=== PATIENT | male | born 1955 | race Caucasian/White ===

== ENCOUNTER → 2021-02-15 10:31 | Outpatient (BNVA) | payer BC, SELFPAY | PROVIDERS: Visit Provider Nurse Practitioner Family | DX: M16.11 Unilateral primary osteoarthritis, right hip (principal); M25.551 Pain in right hip | CPT/HCPCS: 73502 ==

== ENCOUNTER → 2022-03-29 15:14 | Outpatient (BNVA) | payer BC, SELFPAY | PROVIDERS: Visit Provider Family Medicine | DX: M17.12 Unilateral primary osteoarthritis, left knee (principal); M17.11 Unilateral primary osteoarthritis, right knee; I10 Essential (primary) hypertension; Z13.220 Encounter for screening for lipoid disorders; Z13.6 Encounter for screening for cardiovascular disorders | CPT/HCPCS: 73562; 85025 ==

== ENCOUNTER → 2022-04-03 09:22 | Outpatient (BNVA) | payer BC, SELFPAY | PROVIDERS: Visit Provider Family Medicine | DX: J44.9 Chronic obstructive pulmonary disease, unspecified (principal); I10 Essential (primary) hypertension; Z13.220 Encounter for screening for lipoid disorders; Z13.6 Encounter for screening for cardiovascular disorders; Z11.59 Encounter for screening for other viral diseases | CPT/HCPCS: 80053; 80061; 85025; 86803 ==

== ENCOUNTER → 2022-04-04 14:14 | Outpatient (BNVA) | payer BC, SELFPAY | PROVIDERS: Visit Provider Student in an Organized Health Care Education/Training Program | DX: M17.0 Bilateral primary osteoarthritis of knee (principal) | CPT/HCPCS: 73560; 73565 ==

== ENCOUNTER 2022-06-08 06:50 | Outpatient (CLI) | payer BC, SELFPAY ==
--- NOTE | 2022-06-08 07:15 | USCV_ITS ---
Pedro Zelaya Age: 67 Gender: M : 1955 Exam Date: 06/08/2022 07:08 Ordering Phys: Christiane Villegas MD ([email or web address]) Technologist: CHEMO Exam Location: [facility] [place] Indication: SHORTNESS OF BREATH, BRADYCARDIA BP: 154 / 81 HR: 38 Rhythm: Sinus Technical Quality: Suboptimal MEASUREMENTS (Male / Female) Normal Values 2D ECHO LVOT Diameter 2.0 cm LV Ejection Fraction MOD 2C 62.9 % LV Ejection Fraction 2C AL 62.9 % LA Diameter 2.6 cm LA Width 3.3 cm LA Height 4.6 cm RA Width 3.7 cm RA Height 4.7 cm Aorta at Sinotubular Diameter 2.0 cm IVC Diameter 1.6 cm DOPPLER AV Peak Velocity 142.0 cm/s LVOT Peak Velocity 131.0 cm/s AV Area Cont Eq vti 2.5 cm squared AV Area Cont Eq pk 2.9 cm squared MV Peak Velocity 93.0 cm/s MV Area PHT 4.9 cm squared Mitral E to A Ratio 1.0 MV E' Velocity 45.0 cm/s Mitral E to MV E' Ratio 5.3 Mitral E to LV E' Lateral Ratio 5.1 Mitral E to LV E' Septal Ratio 5.5 TR Peak Velocity 264.3 cm/s TR Peak Gradient 27.9 mmHg TR Mean Velocity 212.2 cm/s TR Mean Gradient 19.4 mmHg TR Velocity Time Integral 99.0 cm TV Peak E Velocity 63.0 cm/s Right Atrial Pressure 3.0 mmHg Pulmonary Artery Systolic Pressu 30.9 mmHg FINDINGS Left Ventricle Normal left ventricular size, systolic function and wall thickness, with no regional wall motion abnormalities. Left ventricular ejection fraction is estimated at 65 %. Normal diastolic function. Right Ventricle Normal right ventricular size and systolic function. Right ventricular systolic pressure 36 mmHg. Right Atrium Normal right atrial size. Left Atrium Normal left atrial size. Mitral Valve Structurally normal mitral valve. No mitral valve stenosis. Mild mitral valve regurgitation. Aortic Valve Aortic valve not well visualized. No aortic valve stenosis. No aortic valve regurgitation. Tricuspid Valve Structurally normal tricuspid valve. No tricuspid valve stenosis. Trace to mild tricuspid valve regurgitation. Pulmonic Valve Pulmonic valve not well visualized. Pericardium No pericardial effusion. Aorta Normal size aortic root and proximal ascending aorta. IVC Normal IVC dimension with >50% respiratory change of the inferior vena cava. CONCLUSIONS 1. Normal left ventricular size, systolic function and wall thickness, with no regional wall motion abnormalities. Left ventricular ejection fraction is estimated at 65 %. Normal diastolic function. 2. Pulmonary artery pressure estimated at 36 mm Hg. 3. Mild mitral valve regurgitation. 4. No prior similar studies to compare. Christiane Villegas MD (Electronically Signed) Final Date: 09 June 2022 15:21 S
== END 2022-06-08 06:51 | disposition home or self-care (01) ==
PROVIDERS: PCP Family Medicine; Visit Provider Internal Medicine Cardiovascular Disease
DX: R06.02 Shortness of breath (principal); R00.1 Bradycardia, unspecified; I34.0 Nonrheumatic mitral (valve) insufficiency
CPT/HCPCS: 93306

== ENCOUNTER 2022-06-26 10:24 | Outpatient (CLI) | payer BC, SELFPAY ==
--- NOTE | 2022-06-26 10:30 | CT_ITS ---
WS: [id number] CT RIGHT knee, noncontrast HISTORY: Pain in right knee TECHNIQUE: Protocol for ROXANA total knee replacement has been obtained. This includes axial imaging th rough the RIGHT hip, RIGHT knee and RIGHT ankle. DLP: 907.47 mGy.cm COMPARISON: Radiographs 04/04/2022 Pelvis: Mild narrowing of the SI joints bilaterally. No significant narrowing of the hip joints. RIGHT knee: Moderate narrowing of the medial compartment with bone hypertrophy along the joint lines. Mild lateral subluxation of patella. Small joint effusion. RIGHT ankle: Negative. CT/CT knee RT wo con* [id number] IMPRESSION: CT imaging provided for [facility] robotic total knee replacement.
== END 2022-06-26 10:25 | disposition home or self-care (01) ==
PROVIDERS: PCP Family Medicine; Visit Provider Student in an Organized Health Care Education/Training Program
DX: M17.11 Unilateral primary osteoarthritis, right knee (principal); M25.561 Pain in right knee; Z96.651 Presence of right artificial knee joint
CPT/HCPCS: 73700

== ENCOUNTER 2022-07-05 11:06 | Observation (INO) | payer BC, SELFPAY ==
[2022-06-27 12:56] VITALS: BMI 30.7
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
[2022-07-05] VITALS (19 sets, daily range): BP systolic 101–136; BP diastolic 50–84; PULSE 54–81; RESP 17–18; TEMP 36.1–36.6; O2SAT 93–100; BMI 30.7
[2022-07-05] MEDS: ketorolac 30 mg/mL INJ IVP (06:30)
[2022-07-05] MEDS: acetaminophen 1,000 MG/100 ML PIGGYBACK 400 MG IV ×3 (06:32→22:14)
--- NOTE | 2022-07-05 06:53 | W.PM.OPSUD ---
Surgery/Procedure H&P Update DATE OF PROCEDURE: July 05, 2022 DATE H&P PERFORMED: 06/08/22 CHANGES TO PREVIOUS DOCUMENTATION: None. No issues or new complaints at this time. Patient's states he is ready to proceed with right total knee arthroplasty. He understands risk benefits complication alternatives surgical and nonsurgical treatment options. Understanding his risk for surgery he agrees to proceed. Consent was obtained in the office. PREOP DIAGNOSIS: Right knee degenerative joint disease failed conservative treatment PRIMARY INDICATION FOR PROCEDURE: Right knee degenerative joint disease failed conservative treatment PLANNED PROCEDURE: Operation Date: 07/05/22 07:00 Proposed Procedures p Right knee total Rusty Arthroplasty 43244,M25.569(Right) - Pedro Zepeda DO
[2022-07-05 07:26] LABS: Add Urine Microscopic? YES; Bilirubin Urine Neg (Negative); Blood Urine Trace (Negative); Glucose Urine UA Norm (Normal); Ketones Urine 1+ (Negative); Leukocyte Esterase Urine Negative (Negative); Nitrate Urine Negative (Negative); Protein Urine Neg (Negative); Specific Gravity, Urine 1.025 (1.005-1.030); Urine Appearance Clear (CLEAR); Urine Color Straw (Yellow); Urobilinogen Urine Neg (Negative); pH Urine 5 (5-7)
[2022-07-05 07:33] LABS: Basophils % 0.5 %; Eosinophils # 0.2 10^3/uL (0.0-0.8); Eosinophils % 2.7 %; Hematocrit 49.4 % (42.0-52.0); Hemoglobin 15.7 g/dL (11.7-16.6); Lymphocytes # 1.6 10^3/uL (0.8-4.8); Mean Corpuscular HGB Conc 31.8 g/dL (30.0-36.0); Mean Corpuscular Volume 94.3 fl (80-94); Mean Platelet Volume 11.4 fL (7.4-10.4); Monocytes # 0.7 10^3/uL (0.2-0.9); Monocytes % 12.2 %; Neutrophils # 2.97 10^3/uL (1.8-7.7); Neutrophils % 54.4 %; Nucleated Red Blood Cells % 0 %; Platelet Count 230 10^3/cmm (130-400); Red Blood Count 5.24 10^6/uL (4.1-5.3); White Blood Count 5.5 10^3/uL (4.0-10.0)
[2022-07-05 07:39] LABS: Add Urine Culture? No; Mucus Urine 2+ /hpf; RBC Urine 0-4 /hpf (0-2); Squamous Epithelial Cell Urine 0-4 /hpf (0-5)
[2022-07-05 07:41] LABS: Anion Gap 15.7 (5-19); Blood Urea Nitrogen 17 mg/dL (8-23); Calcium 9.2 mg/dL (8.5-10.5); Carbon Dioxide 20 mmol/L (22-29); Chloride 107 mmol/L (98-107); Glomerular Filtration Rate 96.7 mL/min (90-130); Glucose 106 mg/dL (65-115); Osmolality Calculated 288 mOsm/kg (285-295); Potassium 4.7 mmol/L (3.5-5.1); Sodium 138 mmol/L (136-145)
[2022-07-05] MEDS: ceFAZolin 2,000 MG in sodium chloride 0.9% (plus) 50 ML 100 MG IV ×2 (07:47→16:10)
[2022-07-05] MEDS: tranexamic acid 1,000 mg/10mL SDV 1000 MG XX (08:45)
[2022-07-05] MEDS: tranexamic acid 1,000 mg/10mL SDV 1000 MG IV (08:45)
[2022-07-05] MEDS: ketorolac 30 mg/mL INJ XX (08:45)
[2022-07-05] MEDS: EPINEPHrine 1 mg/mL INJ XX (08:45)
--- NOTE | 2022-07-05 09:33 | P.ANESUD_ITS ---
Pre-Anesthetic Update Pre-Anesthetic Assessment: Date of Surgery/Procedure: 07/05/22 Preop Jacqui gnosis: Right knee degenerative joint disease failed conservative treatment Proposed Procedure: Operation Date: 07/05/22 07:00 Proposed Procedures p Right knee total Rusty Arthroplasty 18986,M25.569(Right) - Pedro Zepeda, DO Any changes to Pre-Anesthetic Assessment?: No Last Intake: Intake Last Liquid Date 07/04/22 Last Liquid Time 20:00 Last Solid Date 07/04/22 Last Solid Time 20:00 Labs Last 48hrs: Short CBC 07/05/22 Range/Units 06:27 WBC 5.5 (4.0-10.0) 10^3/ uL Hgb 15.7 (11.7-16.6) g/dL Hct 49.4 (42.0-52.0) % MCV 94.3 H (80-94) fl Plt Count 230 (130-400) 10^3/c mm Neut % (Auto) 54.4 % Neut # (Auto) 2.97 (1.8-7.7) 10^3/u L BMP 07/05/22 06:27 Sodium 138 Potassium 4.7 Chloride 107 Carbon Dioxide 20 L BUN 17 Creatinine 0.8 Glucose 106 Calcium 9.2 Urine 07/05/22 Range/Units 06:27 Urine Color Straw (Yellow) Urine Appearance Clear (CLEAR) Urine pH 5 (5-7) Ur Specific Gravit y 1.025 (1.005-1.030) Urine Protein Neg (Negative) Urine Glucose (UA) Norm (Normal) Urine Ketones 1+ H (Negative) Urine Nitrate Negative (Negative) Urine Bilirubin Neg (Negative) Ur Leukocyte Patricia ase Negative (Negative) Urine RBC 0-4 H (0-2) /hpf Urine WBC None (0-5) /hpf Blood Bank 07/05/22 06:27 Blood Type O Negative Rho(D) Type Negative Antibody Screen Negative Vitals: Temperature Source Temporal Artery S can 07/05/22 06:09 Pulse Rate 61 07/05/22 06:09 Respiratory Rate 18 07/05/22 06:09 Blood Pressure 134/84 07/05/22 06:09 Blood Pressure Anuja n 100 07/05/22 06:09 Pulse Oximetry 96 07/05/22 06:09 Oxygen Delivery Me thod 07/05/22 06:09 Exam: Pre-Anes Outpt Exam: alert, oriented x 3, clear to auscultation bilaterally and regular rate & rhythm Cardiac Studies: Echocardiogram 06/08/22 Holter Monitor 05/23/22 Anesthesia Procedures Nerve Block: Nerve Block 1: Main Anesthesia: spinal anesthesia block Time Out Performed: Yes Consent: requested by attending/covering physician, from patient, risks and benefits reviewed and patient agrees to proceed Nerve block location: adductor canal (right) Anesthesia monitors applied: pulse oximetry, EKG, BP cuff and oxygen Nerve block position: supine Anesthetic Used: ropivicaine 0.5% Amount of anesthesia used (mL): 20 Ultrasound used to: recognize landmarks Nerve Stimulator Used?: No Interscalene/Femoral BLK: 4 stimuplex 21 g needle used for position and inplane approach Injection: neg aspiration of heme Patient Tolerated Procedure: well Complications: none
--- NOTE | 2022-07-05 10:13 | P.OP_ITS ---
Brief Operative Note Date of procedure: 07/09/22 Pre-op diagnosis: Right knee degenerative joint disease, failed conservative t reatment Post-op diagnosis: same Procedure Done: Right total knee arthroplasty cemented?robotic assisted Rusty Surgeon: Pedro Zepeda Estimated blood loss (mL): 25 Complications: None Post-op Plan: Patient taken to PACU in stable condition recovering well postoperatively. Spinal anesthesia wearing off. Patient has Lopez in place. Plan will be for DC Lopez postop day 1. Dressing on in place clean dry and intact. Will be weightbearing as tolerated to the right lower extremity received postoperative x-rays showing stable prosthesis right total knee arthroplasty. Internal medicine on board for medical management. Pain control, DVT prophylaxis, appropriate perioperative antibiotics. Orthopedics will continue to monitor. We will follow-up with me in the office in 2 weeks. Condition: stable Disposition: floor Coding Level of Care Code Acute Code for Karsten Meraz
--- NOTE | 2022-07-05 10:13 | PM.PACU ---
PACU note Narrative: Patient taken to PACU in stable condition recovering well. Dressing on in place clean dry and intact. Distal pulses are palpable. Toes warm well perfused. Patient received spinal anesthesia beginning to wear off. He is able to wiggle his toes and plantarflex and dorsiflex his ankle. Still has some paresthesias to the right lower extremity. Pain controlled. Exam: awake Disposition: admitted
--- NOTE | 2022-07-05 10:14 | XR_ITS ---
WS: [id number] KNEE RIGHT TECHNIQUE: 2 views of the right knee CLINICAL INFORMATION: postop tka COMPARISON: None. FINDINGS: Normal anatomic alignment. Recent postoperative changes RIGHT TKA. Hardware appears in good position and well seated. Patellar resurfacing. Soft tissue edema. Subcutane ous emphysema in the anterior and suprapatellar soft tissues. XR/XR knee RT 1-2V [id number] IMPRESSION: Normal postoperative TKA Kellgren-Jt Classification: NA
--- NOTE | 2022-07-05 10:14 | PM.OP ---
Operative Report Date of procedure: July 05, 2022 Pre-op diagnosis: Preop Diagnosis Right knee degenerative joint disease failed conservative treatment Post-op diagnosis: Same Procedure done: Right total knee arthroplasty, cemented?robotic assisted Rusty Implants: Oneil triathlon size 5 femur CR cemented Oneil triathlon size 5 tibia universal baseplate cemented [place] triathlon asymmetric patella size 32 mm [place] triathlon polyethylene 10 mm Surgeon: Pedro Zepeda DO Estimated blood loss: 25 mL 66 minutes IV fluids: 1500 mL Urine output: 300 mL Complications: None Condition: stable Disposition: floor Brief History: Pedro is a pleasant 67-year-old gentleman with chronic right knee degenerative joint disease. He has had injections that have failed in the past. Most recently back in March. He is now 90 days since his injection. He was most recently seen in my office roughly over a month ago to have evaluation discussion about surgical treatment options. Given his failed conservative treatment he has [id number] arthritis with a varus deformity of the right knee through shared decision making we talked about his next steps would likely best benefit being a right total knee arthroplasty. We talked about continued conservative treatment and surgical intervention as far as the risk benefits complications alternatives surgical and nonsurgical treatment options. At this point time understanding his risks with surgery he agrees to proceed with surgical intervention. Once again his risk with surgery include but are not limited to make it better make it worse blood clot, heart attack, stroke, on the table, infection, injury to nerves or vessels, persistent pain, arthrofibrosis, implant failure. Understanding these risks he agrees to proceed with surgical intervention consent was obtained in the office. Patient over 90 days from his previous corticosteroid injection at this point time agrees to proceed with surgery. All questions been answered. Procedure: Patient was seen and evaluated in the preoperative holding area.? Consent was reviewed and signed with patient with plan for right total knee arthroplasty.? All questions answered.? Correct extremities marked.? Patient seen and evaluated by the anesthesia department and once cleared for surgery was taken back to the operative suite.? Patient was placed into a supine position on the OR table.? All bony prominences were well-padded.? Patient was appropriately secured to the bed.? Patient underwent anesthesia per the anesthesia department.? Patient received spinal anesthesia and Lopez catheter was placed. A nonsterile tourniquet was applied to the right thigh.? At this point in time a final timeout performed.? Patient received appropriate preoperative antibiotics and TXA. Next the right lower extremity was then prepped and draped in standard orthopedic fashion.?Esmarch tourniquet was used exsanguinate the right lower extremity.? Tourniquet was insufflated to 250 mmHg. A standard anterior incision was made over midline of the knee.? Sharp scalpel excision through skin and subcutaneous tissue full-thickness skin flaps were made.? Fascia was elevated off of the extensor retinaculum was stable with medial parapatellar arthrotomy was then made.? The performed standard sequential releases with a medial release was patient had a varus deformity.? Next the the patella was then stuffed and the knee was then flexed.? Jerod was placed superiorly around the anterior aspect of the femur this was freed of synovium and I subsequently then placed by 2 femur pins to establish my femur arrays for the Rusty robot.? These were then placed bicortically and femur array was then appropriately secured with appropriate visualization.? Next attention was turned towards the tibial rays.? These were then drilled sequentially bicortically in parallel fashion and intraincisional.? I then placed my guide as well as my tibial array on in place.? This was appropriately secured and had excellent visualization with the Rusty robot.? Next the tibial checkpoint as well as femur checkpoint were then placed.? At this point time I then subsequently established my head center as well as my medial lateral malleoli as well as my checkpoints.? Next utilizing standard [employer] technology I then mapped out the appropriate points and confirmation points around the femur as well as the tibia in standard fashion.? Once this was then done I then removed all osteophytes in preparation for dynamic testing.? All osteophytes were removed as well as I removed the ACL and left the PCL intact.? At this point time the knee was brought into full extension and we performed our standard evaluation of our gap balancing stressing his ligaments and extension as well as flexion appropriate adjustments were made to have appropriate gap balancing in both flexion and extension.? This plan for final counts.? We get a preoperative plan evaluating our implants which was a size 5 femur and a size 5 tibia.? Next we brought in the Rusty robot and sequentially made our femur cuts.? All excess bony cuts were then removed.? Finally we made our tibial cut.? Once this was done a standard PCL retractor was then placed into this position I excised the medial and lateral meniscus.? The tibial cut was then subsequently removed all excess bony debris was removed.? I then utilized a lamina research scholar and remove the posterior osteophytes.? At this point time sized the tibia and confirmed this was a size 5.? I utilized our blunt probe to establish rotation of tibial implant.? Once this was done I then placed my tibia size 5 trial in appropriate position and then subsequently placed tibial pins to hold this into place placed a size 9 mm poly as well as a size 5 femur which was appropriately impacted in place knee was then subsequently brought into extension.? Slight hyperextension was then subsequently noted.? I increased my policy thickness to 10 mm and this was stable with varus valgus stress.? Bringing up into flexion this did feel slightly tight.? Then utilizing electrocautery performed a standard PCL release as we were using ultracongruent tibial polyethlene.? Once this was done I had excellent balance gaps in flexion and extension with varus and valgus stresses.? At this point I was satisfied with these implants these were then verified and opened on the back table size 5 tibia, size 5 femur, size 10 mm polythickness.? We did confirm appropriate gap balancing and stresses as well as alignment utilizingDivina Ojeda and were satisfied with this plan.? At this point time with my trials in place I then towel clip the patella everted this made appropriate measurements subsequently utilizing freehand technique performed by patellar resurfacing this was confirmed to be appropriate resection and subsequently sized to be a 32 mm asymmetric.? My drill peg guides were then clamped and appropriate position and appropriate position in the patella for appropriate tracking and parallel with the joint.? Pegs were drilled trial implant was placed and the knee was then subsequently ranged and found to have excellent patellar tracking.? Femur pegs were then drilled. Satisfied with our tibial placement rotation I then utilized the keel punch and prepped the tibia. At this point time all of our trial implants were removed.? All checkpoints as well as guidepins and arrays were removed and appropriate counts made.? The wound bed was thoroughly irrigated and dried and prepped for cementation.? Cement was mixed on the back table.? Once cement was ready this was then covered onto the tibia and the tibial baseplate was then impacted and all excess cement was removed.? Next the polyethylene was then impacted into place on the tibial baseplate.? Next cement was placed onto the femur as well as under the femur implants and impacted in to place and all excess cement was extruded.? Knee was taken into full extension? to clear all excess cement was removed.? Warm saline was placed over the joint.? I then towel clip patella and dried for cementation. cemented the patella into place.? This was all clamped and the cement was allowed to cure.? Thorough irrigation performed with pulse lavage.? I then placed my periarticular injection while the cement was curing.? Once cured the knee was taken through range of motion and had excellent stability and gaps balances.? Tourniquet was then deflated.? Once tourniquet was deflated hemostasis satisfactory with electrocautery.? Next I then subsequently closed the capsule with Ethibond suture as well as a running strata fix suture.? He was then taken through range of motion 30 times.? Next the skin was then closed in layered fashion of running stratifix sutures of deep ans subcutenous tissue and skin. He was closed in flexion and Prineo glue was then placed over the incision this allowed to cure.? Incision was covered with ABDs soft roll and Steven wrap.? Patient was then awakened from anesthesia and taken to PACU in stable condition. Disposition: Patient taken to PACU in stable condition will be admitted to the floor for pain control PT/OT weight-bear as tolerated right lower extremity dressing changes as needed, DVT prophylaxis.?Pain control. Patient will receive appropriate postoperative antibiotics. patient will be seen today by the internal medicine team for medical management.? Patient will follow up with the office in 2 weeks.? Patient understands agrees with current plan.? All questions answered.
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
[2022-07-05] MEDS: chlorhexidine gluconate 0.12% Btl 473 mL 30 ML MUCOUS MEM ×3 (13:43→20:21)
--- NOTE | 2022-07-05 14:12 | ANE.PACU2 ---
Inpatient post-anesthesia follow up: Airway intact: Yes Vital signs: Temperature 97.3 F Pulse Rate 60 Respiratory Rate 18 Blood Pressure 129/71 Pulse Oximetry 98 Oxygen Delivery Me thod Room Air Oxygen Flow Rate 6 Fraction of Inspir ed Oxygen Hydration adequate: Yes Nausea and vomiting: No Pain level: 1 Mental status: Baseline
[2022-07-05] MEDS: lactated ringers 1,000 ML 100 ML IV (14:27)
[2022-07-05] MEDS: oxyCODONE 5 mg IR Tab/Cap PO ×2 (16:06→20:25)
[2022-07-05] MEDS: mupirocin oint 22 gm 1 APPLIC NASAL (17:03)
[2022-07-05] MEDS: iron polysaccharide complex 150 mg Capsule PO (17:03)
[2022-07-05] MEDS: docusate sodium 100 mg Capsule PO (17:03)
[2022-07-05] MEDS: calcium carbonate 500 mg Chew Tablet 1000 MG PO (17:03)
[2022-07-05] MEDS: TRAMadol 50 mg Tablet PO (19:34)
[2022-07-06] VITALS (13 sets, daily range): BP systolic 116–149; BP diastolic 69–77; PULSE 55–88; RESP 16–19; TEMP 36.4–37.3; O2SAT 92–97
[2022-07-06] MEDS: ceFAZolin 2,000 MG in sodium chloride 0.9% (plus) 50 ML 100 MG IV ×2 (00:15→08:13)
[2022-07-06] MEDS: lactated ringers 1,000 ML 100 ML IV ×2 (00:16→17:52)
[2022-07-06] MEDS: oxyCODONE 5 mg IR Tab/Cap PO ×4 (01:54→21:53)
--- NOTE | 2022-07-06 03:28 | PC.NURSE ---
late entry:2129, carver cath removed per patient request, all intact, tolerated well.
[2022-07-06] MEDS: ondansetron 2 mg/ML SDV 2 mL 4 MG IVP ×2 (03:51→17:12)
[2022-07-06] MEDS: ketorolac 30 mg/mL INJ 15 MG IVP ×2 (03:56→21:53)
[2022-07-06 05:57] LABS: Basophils % 0.3 %; Eosinophils # 0.1 10^3/uL (0.0-0.8); Eosinophils % 0.9 %; Hematocrit 43.4 % (42.0-52.0); Hemoglobin 13.9 g/dL (11.7-16.6); Lymphocytes # 1.1 10^3/uL (0.8-4.8); Lymphocytes % 9.4 %; Mean Corpuscular Hemoglobin 30.3 pg (28.0-34.0); Mean Corpuscular Volume 94.6 fl (80-94); Monocytes % 8.9 %; Neutrophils # 8.92 10^3/uL (1.8-7.7); Neutrophils % 80.2 %; Nucleated Red Blood Cells % 0 %; Platelet Count 186 10^3/cmm (130-400); Red Blood Count 4.59 10^6/uL (4.1-5.3); Red Cell Distribution Width 13.2 % (12.1-15.1); White Blood Count 11.1 10^3/uL (4.0-10.0)
[2022-07-06] MEDS: acetaminophen 1,000 MG/100 ML PIGGYBACK 400 MG IV (06:01)
[2022-07-06 06:26] LABS: Anion Gap 15.3 (5-19); Blood Urea Nitrogen 10 mg/dL (8-23); Calcium 8.6 mg/dL (8.5-10.5); Carbon Dioxide 20 mmol/L (22-29); Chloride 105 mmol/L (98-107); Glomerular Filtration Rate 134.8 mL/min (90-130); Glucose 126 mg/dL (65-115); Osmolality Calculated 283 mOsm/kg (285-295); Potassium 4.3 mmol/L (3.5-5.1); Sodium 136 mmol/L (136-145)
--- NOTE | 2022-07-06 08:12 | PM.PN ---
Subjective Subjective: Pedro reports he is having quite a bit of pain this morning. States that that is in his knee. He denies any shortness of breath. His Lopez was removed last night and he had some blood when he urinated. He has been able to urinate twice since that time. Urine has seemed to clear. Medications: Reviewed: Yes Vitals/I&O/Wt Last Vital Signs Temp 98.6 F 07/06/22 07:31 Pulse 69 07/06/22 07:42 Resp 16 07/06/22 07:42 BP 121/75 07/06/22 07:31 Pulse Ox 95 07/06/22 07:42 O2 Del Method 07/06/22 07:42 O2 Flow Rate 6 07/05/22 10:38 07/05/22 07/06/22 07/06/22 22:59 06:59 14:59 Intake Total 990 / 1999 1131.667 / 3131.667 Output Total 350 / 675 Balance 990 / 1675 781.667 / 2456.667 Weight last 48 hrs Weight 99.79 kg Physical Exam Narrative: General exam reports pain. No other distress noted. Cardiovascular regular rate and rhythm without murmur no S3 or S4 Lungs clear no wheezing or crackles Abdomen is soft with positive bowel sounds. exam Lopez is removed Extremities no cyanosis clubbing or edema, dressing present right knee. He is able to dorsiflex right foot with significant discomfort Skin sun damage noted on shoulders Urinary Catheter Management: Coude: Cath Placed During This Visit: yes, but has since been removed by the nurse Reason for Continuing Indwelling Catheter: Decision to DC Catheter Urinary Catheter Date of Insertion: 07/05/22 Urinary Catheter Time of Insertion: 08:30 Date Urinary Catheter Removed: 07/06/22 Time Urinary Catheter Discontinued: 05:00 Data 07/06/22 05:23 07/06/22 05:23 A&P Assessment and plan (1) Arthritis of right knee: Postoperative day #1 status post total knee arthroplasty Plan per orthopedic surgeon Significant pain. Will discuss with nursing that he has other medications he could take. (2) COPD (chronic obstructive pulmonary disease): Initiate DuoNeb as needed (3) Hypertension: Continue lisinopril 20 mg daily. Qualifiers: Hypertension type: primary hypertension Qualified Code(s): I10 - Essential (primary) hypertension (4) Bradycardia: Patient with past history of bradycardia, evaluated by echocardiogram and Holter monitor. With thorough evaluation, he does not need telemetry at this point Avoid blood pressure medication that could lower rate Plan History of prostate surgery. Lopez was removed yesterday and now he had some hematuria following this. Urine seems to clear. If he has any significant urinary issues persisting consider bladder scan. DVT prophylaxis to be addressed by primary care provider. Thank you for this consultation. Attestations Medical Necessity Statement*: As per primary Coding Level of Care Code Acute Code for [facility] Diagnoses Arthritis of right knee M17.11 COPD (chronic obstructive pulmonary disease) J44.9 Hypertension I10 Hypertension type: primary hypertension Bradycardia R00.1
[2022-07-06] MEDS: calcium carbonate 500 mg Chew Tablet 1000 MG PO ×2 (08:14→17:13)
[2022-07-06] MEDS: apixaban 5 mg Tablet 2.5 MG PO ×2 (08:14→17:13)
[2022-07-06] MEDS: cholecalciferol (vitamin D3) 1,000 unit Tablet 1000 UNIT PO (08:14)
[2022-07-06] MEDS: docusate sodium 100 mg Capsule PO ×2 (08:14→17:13)
[2022-07-06] MEDS: multivitamin therapeutic Tablet 1 TAB PO (08:15)
[2022-07-06] MEDS: lisinopril 20 mg Tablet PO (08:15)
[2022-07-06] MEDS: iron polysaccharide complex 150 mg Capsule PO ×2 (08:15→17:13)
[2022-07-06] MEDS: mupirocin oint 22 gm 1 APPLIC NASAL (08:21)
[2022-07-06] MEDS: chlorhexidine gluconate 0.12% Btl 473 mL 30 ML MUCOUS MEM ×2 (08:21→21:53)
[2022-07-06] MEDS: HYDROmorphone 1 mg/mL INJ 1 mL 0.5 MG IVP (08:41)
[2022-07-06] MEDS: metoclopramide 5 mg/mL SDV 2 mL 10 MG IV (09:00)
[2022-07-06] MEDS: tamsulosin 0.4 mg Capsule PO (10:40)
--- NOTE | 2022-07-06 16:48 | PM.PN ---
Subjective Subjective: Patient seen evaluated this afternoon. Patient overall had some issues with pain control and subsequently received Dilaudid however this made him nauseous and he had some episodes of nausea and vomiting this morning. His Lopez catheter was subsequently removed earlier today however he began to have significant retention. This is currently being managed by internal medicine he subsequently had a Lopez catheter replaced. He does have some slight hematuria secondary to a new Lopez being placed and then having a previous prostate surgery. Overall he states this afternoon that his pain is better controlled pertaining to his right knee. He is gotten up and walked the hallways with therapy. This point time would recommend an additional night stay for monitoring of Lopez catheter per internal medicine, as well as pain control and his nausea and vomiting. Patient understands and agrees with current plan. All questions answered. We will continue to work with therapy. Vitals/I&O/Wt Last Vital Signs Temp 98.9 F 07/06/22 16:00 Pulse 85 07/06/22 16:00 Resp 18 07/06/22 16:00 BP 149/74 07/06/22 16:00 Pulse Ox 95 07/06/22 16:00 O2 Del Method 07/06/22 16:00 O2 Flow Rate 6 07/05/22 10:38 07/06/22 07/06/22 07/06/22 06:59 14:59 22:59 Intake Total 1131.667 / 3131.667 1170 / 1170 Output Total 350 / 675 250 / 250 1000 / 1250 Balance 781.667 / 2456.667 920 / 920 -1000 / -80 Weight last 48 hrs Weight 220 lb Physical Exam Narrative: Patient examination right lower extremity demonstrates Steven wrap on in place dressings clean dry and intact ice pack on and in place. Distal pulses are palpable. Toes warm well perfused. Sensation intact light distally at the SPN/DPN/tibial saphenous and sural nerve distribution. Is able to wiggle toes as well as plantarflex and dorsiflex ankle with purpose. No calf tenderness. Urinary Catheter Management: Coude: Cath Placed During This Visit: yes, but has since been removed by the nurse Reason for Continuing Indwelling Catheter: Decision to DC Catheter Urinary Catheter Date of Insertion: 07/05/22 Urinary Catheter Time of Insertion: 08:30 Date Urinary Catheter Removed: 07/06/22 Time Urinary Catheter Discontinued: 05:00 Data 07/06/22 05:23 07/06/22 05:23 Xray Ortho: My impression: PACU postoperative x-rays of the right knee reviewed in person interpreted by myself demonstrating a stable cemented right total knee arthroplasty in appropriate positioning and alignment no periprosthetic fracture noted. A&P Assessment and plan (1) S/P total knee replacement using cement: (2) Arthritis of right knee: (3) Urinary retention: Plan Weightbearing as tolerated right lower extremity Lopez catheter removed this a.m.?continued urinary retention Lopez replaced being managed by internal medicine appreciate their assistance. Anticipate likely discharge with Lopez and follow-up with urology unfortunately urology service unavailable due to urologist being out of town. Can follow-up outpatient per primary team Antinausea medication for nausea Continued pain control DVT prophylaxis?Marlon Completed postoperative antibiotics Ice and elevate as needed Encourage range of motion as tolerated right knee Leave dressing on in place unless becomes saturated Internal medicine on board for medical management Orthopedics will continue to monitor A.m. labs reviewed Attestations Medical Necessity Statement*: Ongoing postoperative care right total knee arthroplasty, patient's had nausea and vomiting today as well as issues with urinary retention after Lopez removed. Coding Level of Care Code Acute Code for [facility] Fwd Diagnoses S/P total knee replacement using cement Z96.659 Arthritis of right knee M17.11 Urinary retention R33.9 Time Spent (min) 30
[2022-07-07] VITALS (7 sets, daily range): BP systolic 137–157; BP diastolic 78–92; PULSE 77–91; RESP 16–19; TEMP 36.8–37.2; O2SAT 90–94
[2022-07-07] MEDS: lactated ringers 1,000 ML 100 ML IV ×2 (00:56→10:41)
[2022-07-07 02:16] LABS: Basophils % 0.2 %; Hematocrit 42.8 % (42.0-52.0); Hemoglobin 13.7 g/dL (11.7-16.6); Lymphocytes # 1.3 10^3/uL (0.8-4.8); Lymphocytes % 11.7 %; Mean Corpuscular Hemoglobin 30.1 pg (28.0-34.0); Mean Corpuscular Volume 94.1 fl (80-94); Mean Platelet Volume 10.6 fL (7.4-10.4); Monocytes # 1.4 10^3/uL (0.2-0.9); Monocytes % 12.4 %; Neutrophils # 8.35 10^3/uL (1.8-7.7); Neutrophils % 75.3 %; Nucleated Red Blood Cells % 0 %; Platelet Count 216 10^3/cmm (130-400); Red Blood Count 4.55 10^6/uL (4.1-5.3); Red Cell Distribution Width 13.1 % (12.1-15.1); White Blood Count 11.1 10^3/uL (4.0-10.0)
[2022-07-07 02:28] LABS: Anion Gap 13.1 (5-19); Blood Urea Nitrogen 5 mg/dL (8-23); Calcium 9.1 mg/dL (8.5-10.5); Carbon Dioxide 26 mmol/L (22-29); Chloride 103 mmol/L (98-107); Glomerular Filtration Rate 96.7 mL/min (90-130); Glucose 136 mg/dL (65-115); Osmolality Calculated 285 mOsm/kg (285-295); Potassium 4.1 mmol/L (3.5-5.1); Sodium 138 mmol/L (136-145)
[2022-07-07] MEDS: oxyCODONE 5 mg IR Tab/Cap PO ×2 (05:41→15:02)
[2022-07-07] MEDS: TRAMadol 50 mg Tablet PO (06:47)
--- NOTE | 2022-07-07 07:23 | P.PN_ITS ---
Subjective Subjective: Reports he feels a lot better. Less nausea. Able to tolerate breakfast. Agrees to keep catheter in at discharge home. Knee pain present but under better control Medications: Reviewed: Yes Vitals/I&O/Wt Last Vital Signs Temp 99.0 F 07/07/22 03:16 Pulse 86 07/07/22 03:16 Resp 18 07/07/22 05:41 BP 144/85 07/07/22 03:16 Pulse Ox 93 07/07/22 03:16 O2 Del Method 07/07/22 03:16 O2 Flow Rate 6 07/05/22 10:38 07/06/22 07/07/22 07/07/22 22:59 06:59 14:59 Intake Total 240 / 1410 706.667 / 2116.667 Output Total 1100 / 1350 1100 / 2450 Balance -860 / 60 -393.333 / -333.333 Weight last 48 hrs Weight 99.79 kg Physical Exam Narrative: General exam no distress Cardiovascular regular rate and rhythm without murmur no S3 or S4 Lungs clear no wheezing or crackles Abdomen is soft with positive bowel sounds. exam Lopez noted. No significant blood currently. Extremities no cyanosis clubbing or edema, dressing present right knee. H Urinary Catheter Management: Coude: Cath Placed During This Visit: yes, but has since been removed by the nurse Reason for Continuing Indwelling Catheter: Acute Urinary Retention or Ob struction Urinary Catheter Date of Insertion: 07/06/22 Urinary Catheter Time of Insertion: 12:00 Date Urinary Catheter Removed: 07/06/22 Time Urinary Catheter Discontinued: 05:00 Data 07/07/22 01:56 07/07/22 01:56 Other Labs: Laboratory reviewed in detail. A&P Assessment and plan (1) Arthritis of right knee: Postoperative day #2 status post total knee arthroplasty Plan per orthopedic surgeon Pain is improved. Possible discharged today. (2) COPD (chronic obstructive pulmonary disease): Initiate DuoNeb as needed (3) Hypertension: Continue lisinopril 20 mg daily. Qualifiers: Hypertension type: primary hypertension Qualified Code(s): I10 - Essential (primary) hypertension (4) Bradycardia: Patient with past history of bradycardia, evaluated by echocardiogram and Holter monitor. With thorough evaluation, he does not need telemetry at this point Avoid blood pressure medication that could lower rate Plan History of prostate surgery. Lopez was removed yesterday and now he had some hematuria following this. He had some hematuria, and catheter had to be placed back and secondary to retention. Will discharge with Lopez, with follow-up with urology. DVT prophylaxis to be addressed by primary care provider. Thank you for this consultation. Attestations Medical Necessity Statement*: As per primary Coding Level of Care Code Acute Code for [facility] Fwd Diagnoses Arthritis of right knee M17.11 COPD (chronic obstructive pulmonary disease) J44.9 Hypertension I10 Hypertension type: primary hypertension Bradycardia R00.1
[2022-07-07] MEDS: apixaban 5 mg Tablet 2.5 MG PO (08:59)
[2022-07-07] MEDS: docusate sodium 100 mg Capsule PO (08:59)
[2022-07-07] MEDS: iron polysaccharide complex 150 mg Capsule PO (08:59)
[2022-07-07] MEDS: cholecalciferol (vitamin D3) 1,000 unit Tablet 1000 UNIT PO (09:00)
[2022-07-07] MEDS: lisinopril 20 mg Tablet PO (09:00)
[2022-07-07] MEDS: tamsulosin 0.4 mg Capsule PO (09:00)
[2022-07-07] MEDS: multivitamin therapeutic Tablet 1 TAB PO (09:00)
[2022-07-07] MEDS: chlorhexidine gluconate 0.12% Btl 473 mL 30 ML MUCOUS MEM (09:01)
[2022-07-07] MEDS: mupirocin oint 22 gm 1 APPLIC NASAL (09:02)
[2022-07-07] MEDS: ketorolac 30 mg/mL INJ 15 MG IVP (10:05)
--- NOTE | 2022-07-07 16:18 | P.PN_ITS ---
Subjective Subjective: Patient seen and examined this afternoon. Pain much improved and controlled with medications. His nausea has resolved. Urine and his Lopez catheter appears clean with no evidence of urinary hematuria. Once again internal medicine on board and managing and will refer to urology outpatient. His Steven wrap subsequently taken down and Optifoam dressing on in place still over incision. Around the knee patient has normal postoperative swelling ecchymosis and warmth. Patient's walked the hallways with therapy. Overall pleased with his pain control for his right knee. Patient states he feels ready for discharge today. Plan with home with home health care. Internal medicine on board and if okay from internal medicine standpoint stable for discharge from orthopedic standpoint. Vitals/I&O/Wt Last Vital Signs Temp 98.2 F 07/07/22 15:31 Pulse 88 07/07/22 15:31 Resp 16 07/07/22 15:31 BP 137/78 07/07/22 15:31 Pulse Ox 93 07/07/22 15:31 O2 Del Method 07/07/22 15:31 O2 Flow Rate 6 07/05/22 10:38 07/07/22 07/07/22 07/07/22 06:59 14:59 22:59 Intake Total 706.667 / 2116.667 1575 / 1575 Output Total 1100 / 2450 Balance -393.333 / -594.347 3192 / 1575 Physical Exam Narrative: Right lower extremity examination demonstrates Steven wrap subs equently taken down as well as cast padding Optifoam dressing over the incision left alone and on in place. Patient has normal postoperative ecchymosis swelling and warmth of the right knee. Patient is able to tolerate gentle knee range of motion. He is able to achieve full extension. Able to wiggle toes plantarflex dorsiflex ankle. Sensation is intact light touch distally. Distal pulses are palpable. Lopez in place. Urinary Catheter Management: Coude: Cath Placed During This Visit: yes, but has since been removed by the nurse Reason for Continuing Indwelling Catheter: Acute Urinary Retention or Obstruction Urinary Catheter Date of Insertion: 07/06/22 Urinary Catheter Time of Insertion: 12:00 Date Urinary Catheter Removed: 07/06/22 Time Urinary Catheter Discontinued: 05:00 Data 07/07/22 01:56 07/07/22 01:56 A&P Assessment and plan (1) S/P total knee replacement using cement: (2) Urinary retention: Plan Weightbearing as tolerated right lower extremity Ice and elevate as needed Pain control DVT prophylaxis-Eliquis Urinary retention?Lopez in place follow-up with urology outpatient?currently internal medicine managing Internal medicine on board for medical management?stable from internal medicine standpoint for discharge PT/OT?patient is progressed well with therapy Stable for discharge from orthopedic standpoint. Stable for discharge from internal medicine standpoint. Will discharge home later today with home health care. We will follow-up with me in the office in 2 weeks. Patient understands and agrees with current plan. All questions answered. Attestations Medical Necessity Statement*: Postoperative care right total knee arthroplasty Coding Level of Care Code Acute Code for [facility] Fwd Diagnoses S/P total knee replacement using cement Z96.659 Urinary retention R33.9 Time Spent (min) 20
--- NOTE | 2022-07-07 16:18 | P.DS_ITS ---
Discharge Providers Date of Admission: 07/05/22 11:06 Date of Discharge: July 07, 2022 Attending Provider at Admission: Pedro Zepeda DO Attending Provider at Discharge: Pedro Zepeda DO Consults: Internal medicine (hospitalist)?Dr. Ybarra Primary Care Provider: Samantha Archibald MD Diagnoses at Discharge Discharge Diagnosis (1) S/P total knee replacement using cement: Status: Acute (2) Urinary retention: Status: Acute (3) COPD (chronic obstructive pulmonary disease): Status: Inactive (4) Hypertension: Status: Inactive Qualifiers: Hypertension type: primary hypertension Qualified Code(s): I10 - Essential (primary) hypertension (5) Bradycardia: Status: Inactive Permanent problem details: Evaluated with Holter demonstrating heart rate 40-1 36, sinus Reason for Visit Reason for Visit: M25.569 Brief History: Postoperative care status post right total knee arthroplasty Hospital Course Hospital Course Patient was brought into the hospital with plan for right total knee arthroplasty. This is been worked up in the outpatient setting and is failed conservative treatment. After long thoughtful discussion and shared decision- making he elected to proceed with surgical intervention. He has been medically optimized and cleared for surgical intervention. Evaluated by Anesthesia Department cleared for surgery. Consent reviewed and signed with patient. Patient taken back to the operative suite underwent spinal anesthesia. Patient subsequently underwent a right total knee arthroplasty cemented technique utilizing robotic assisted Rusty. patient tolerated procedure without any complications. Seen evaluated in PACU recovering well. He was subsequently admitted to the floor postoperatively. Postop day 1 his Lopez catheter was subsequently removed as a spinal anesthesia had subsequently worn off and was begin to work with therapy. He unfortunately developed residually urinary retention. This was managed by internal medicine who was originally consulted for medical management. A new Lopez catheter was subsequently placed and plan for follow-up outpatient with urology. Patient planned to be discharged with Lopez catheter in place. Patient was weightbearing as tolerated to the right lower extremity. Dressings change as needed. He tolerated therapy well. Was range of motion of the right knee as tolerated. Received appropriate perioperative antibiotics, DVT prophylaxis postoperatively, a.m. labs monitored. He did have some bouts of nausea postop day 1. On postop day 2 patient much improved. Lopez catheter in place with plan for urology outpatient follow-up. Nausea resolved. Worked well with therapy. Pain controlled. On postoperative day 2 was determined patient was stable from orthopedic standpoint as well as from internal medicine standpoint for discharge. Patient was subsequently discharged home with home health care. Lopez maintained and in place given appropriate instructions with this and her urology follow-up. Discharged with appropriate pain medication as well as DVT prophylaxis postoperatively. Patient given appropriate instructions pertaining to dressing and incision. Patient to follow-up with Dr. Zepeda in the office in 2 weeks. Patient and family understand agree with current plan. All questions answered. Understand if they have any issues or concerns and contact the office or report to the emergency department. Physical Exam Narrative: Right lower extre mity examination d emonstrates Steven wr ap subsequently ta josefina down as well a s cast padding Opt ifoam dressing ove r the incision lef t alone and on in place.? Patient ellsworth s normal postopera tive ecchymosis sw elling and warmth of the right knee. ? Patient is able to tolerate gentle knee range of mot ion.? He is able t o achieve full ext ension.? Able to w iggle toes plantar flex dorsiflex ank le.? Sensation is intact light touch distally.? Distal pulses are palpab le.? Lopez in plac e. Urinary Catheter Management: Coude: Cath Placed During This Visit: yes, but has since been removed by the nurse Reason for Continuing Indwelling Catheter: Acute Urinary Retention or Obstruction Urinary Catheter Date of Insertion: 07/06/22 Urinary Catheter Time of Insertion: 12:00 Date Urinary Catheter Removed: 07/06/22 Time Urinary Catheter Discontinued: 05:00 Discharge Data Studies Completed and Pending Completed Studies During Hospitalization Category Date Time Status XR knee RT 1-2V 51957 Routine Exams 07/05/22 10:14 Completed Pending at discharge Category Date Time Status Basic Metabolic Panel AM LABS Lab 07/08/22 04:00 Ordered Complete Blood Count w/Auto AM LABS Lab 07/08/22 04:00 Ordered Radiology Impressions Knee X-Ray 07/05/22 10:14 IMPRESSION: Normal postoperative TKA Kellgren-Jt Classification: NA Laboratory Results WBC 11.1 10^3/uL (4.0-10.0) H 07/07/22 01:56 RBC 4.55 10^6/uL (4.1-5.3) 07/07/22 01:56 Hgb 13.7 g/dL (11.7-16.6) 07/07/22 01:56 Hct 42.8 % (42.0-52.0) 07/07/22 01:56 MCV 94.1 fl (80-94) H 07/07/22 01:56 MCH 30.1 pg (28.0-34.0) 07/07/22 01:56 MCHC 32.0 g/dL (30.0-36.0) 07/07/22 01:56 RDW 13.1 % (12.1-15.1) 07/07/22 01:56 Plt Count 216 10^3/cmm (130-400) 07/07/22 01:56 MPV 10.6 fL (7.4-10.4) H 07/07/22 01:56 Neut % (Auto) 75.3 % 07/07/22 01:56 Lymph % (Auto) 11.7 % 07/07/22 01:56 Williamson % (Auto) 12.4 % 07/07/22 01:56 Eos % (Auto) 0.0 % 07/07/22 01:56 Baso % (Auto) 0.2 % 07/07/22 01:56 Neut # (Auto) 8.35 10^3/uL (1.8-7.7) H 07/07/22 01:56 Lymph # (Auto) 1.3 10^3/uL (0.8-4.8) 07/07/22 01:56 Williamson # (Auto) 1.4 10^3/uL (0.2-0.9) H 07/07/22 01:56 Eos # (Auto) 0.0 10^3/uL (0.0-0.8) 07/07/22 01:56 Baso # (Auto) 0.0 10^3/uL (0.0-0.1) 07/07/22 01:56 Nucleated RBC % (auto) 0 % 07/07/22 01:56 Nucleated RBCs # 0.0 /100WBC 07/07/22 01:56 Sodium 138 mmol/L (136-145) 07/07/22 01:56 Potassium 4.1 mmol/L (3.5-5.1) 07/07/22 01:56 Chloride 103 mmol/L (98-107) 07/07/22 01:56 Carbon Dioxide 26 mmol/L (22-29) 07/07/22 01:56 Anion Gap 13.1 (5-19) 07/07/22 01:56 BUN 5 mg/dL (8-23) L 07/07/22 01:56 Creatinine 0.8 mg/dL (0.7-1.2) 07/07/22 01:56 GFR Calculation 96.7 mL/min (90-130) 07/07/22 01:56 Glucose 136 mg/dL (65-115) H 07/07/22 01:56 Calculated Osmolality 285 mOsm/kg (285-295) 07/07/22 01:56 Calcium 9.1 mg/dL (8.5-10.5) 07/07/22 01:56 Urine Color Straw (Yellow) 07/05/22 06:27 Urine Appearance Clear (CLEAR) 07/05/22 06:27 Urine pH 5 (5-7) 07/05/22 06:27 Ur Specific [place] 1.025 (1.005-1.030) 07/05/22 06:27 Urine Protein Neg (Negative) 07/05/22 06:27 Urine Glucose (UA) Norm (Normal) 07/05/22 06:27 Urine Ketones 1+ (Negative) H 07/05/22 06:27 Urine Blood Trace (Negative) H 07/05/22 06:27 Urine Nitrate Negative (Negative) 07/05/22 06:27 Urine Bilirubin Neg (Negative) 07/05/22 06:27 Urine Urobilinogen Neg mg/dL (Negative) 07/05/22 06:27 Ur Leukocyte Esterase Negative (Negative) 07/05/22 06:27 Urine RBC 0-4 /hpf (0-2) H 07/05/22 06:27 Urine WBC None /hpf (0-5) 07/05/22 06:27 Ur Squamous Epith Cells 0-4 /hpf (0-5) H 07/05/22 06:27 Amorphous Sediment Not Reportable 07/05/22 06:27 Urine Bacteria None /hpf (NONE) 07/05/22 06:27 Urine Mucus 2+ /hpf 07/05/22 06:27 Blood Type O Negative 07/05/22 06:27 Rho(D) Type Negative 07/05/22 06:27 Antibody Screen Negative 07/05/22 06:27 Procedures Performed Right total knee arthroplasty Vitals Last Vital Signs Temp 98.2 F 07/07/22 15:31 Pulse 88 07/07/22 15:31 Resp 16 07/07/22 15:31 BP 137/78 07/07/22 15:31 Pulse Ox 93 07/07/22 15:31 O2 Del Method 07/07/22 15:31 O2 Flow Rate 6 07/05/22 10:38 Discharge Plan Discharge Patient Disposition: Home Condition: Stable Prescriptions: New tamsulosin 0.4 mg Capsule 0.4 mg PO DAILY Qty: 30 0RF calcium carbonate-vitamin D3 600 mg-10 mcg (400 unit) Tablet 1 tab PO BID 30 Days Qty: 60 0RF Percocet 5-325 mg tablet 2 tab PO Q6H PRN (Reason: pain) 7 Days Qty: 56 0RF Rx Instructions: Take 1 tablet for moderate pain Take 2 tablets for severe pain ondansetron 4 mg tablet,disintegrating 4 mg PO DAILY 5 Days Qty: 5 0RF Eliquis 2.5 mg tablet 2.5 mg PO BID 14 Days Qty: 28 0RF Continued lisinopril 20 mg tablet 20 mg PO DAILY 90 Days Qty: 90 0RF Discontinued ibuprofen [IBU] 600 mg tablet 600 mg PO DAILY PRN (Reason: Pain) Rx Instructions: Take with food (DME) [employer] See Rx Instructions .Route .MEDSUPPLY Qty: 1 0RF Rx Instructions: As directed No Action Bactrim DS 800-160 mg tablet 1 tab PO DAILY 10 Days Qty: 20 0RF Discharge Orders: Discharge Order (Routine); Ordered 07/07/22 Ordered By: Pedro Zepeda Referrals: Jasbir Adair MD [Physician] - 7-10 days (Urinary retention, Lopez left in discharge. Office will call Late on Sunday afternoon with appointment information. ) Pedro Zepeda DO [Physician] - 07/18/22 8:30 am Discharge Diet: Advance as tolerated Discharge Activity: Increase activity as tolerated Patient Instructions: Oxycodone/Acetaminophen (By mouth), Apixaban (By mouth), Urinary Retention in Men (GEN), Knee Replacement (GEN), Opioid Safety Activity Restrictions/Additional Instructions: Leave Lopez in at discharge. Follow-up with urology 7 to 10 days. Orthopedic discharge instructions: Patient may be weightbearing as tolerated to the right lower extremity Ice and elevate as needed Wear JANNET hose compression stockings for pain and swelling May utilize Steven wrap as well Range of motion of the right knee as tolerated May remove bandage and shower after 3 days postoperatively. No baths or soaks pat incision dry and redress with a dry dressing Follow-up with Dr. Zepeda in the office in 2 weeks Take pain medication as prescribed Take Eliquis (blood thinner) for blood clot prevention as prescribed Take Colace for constipation as needed Take antinausea medication as needed Contact the office for any questions or concerns Discharge Attestations Time Spent in Discharge Care*: greater than 30 min Quality Metrics Clinical Quality Measures [ No reported AMI, CVA or VTE this stay] Coding Level of Care Code Acute Code for Chg Fwd Diagnoses S/P total knee replacement using cement Z96.659 Urinary retention R33.9 COPD (chronic obstructive pulmonary disease) J44.9 Hypertension I10 Hypertension type: primary hypertension Bradycardia R00.1 Time Spent (min) 35
--- NOTE | 2022-07-08 15:55 | PC.NURSE ---
this rn received phone call from dr. gallagher, he preformed a right total knee on this pt. this pt was d/c with carver cath intact, pt was to f/u with dr. riggins op. pts call was transferred to dr. gallagher, he requested rn to speak with hospitalist. rn reached out to . dr. jean instructed rn to have pt come to the er. rn called pts geronimo rubio and informed her of this.
== END 2022-07-07 17:23 | disposition home or self-care (01) ==
LOC: MEDSURG 07-06 00:30
PROVIDERS: Admitting Provider Student in an Organized Health Care Education/Training Program; PCP Family Medicine; Visit Provider Student in an Organized Health Care Education/Training Program
PROC: 8E0Y0CZ Robotic Assisted Procedure of Lower Extremity, Open Approach (ICD-10-PCS; CPT 27447; principal; 2022-07-05 07:00)
DX: M17.11 Unilateral primary osteoarthritis, right knee (principal); J44.9 Chronic obstructive pulmonary disease, unspecified; I10 Essential (primary) hypertension; R00.1 Bradycardia, unspecified; R33.9 Retention of urine, unspecified
CPT/HCPCS: 27447; 36415; 51702; 51798; 73560; 80048; 81001; 85025; 86850; 86900; 97110; 97116; 97161; 97165; 97530; 97535; C1776; G0378; J0131; J0171; J0690; J1170; J1885; J2250; J2370; J2405; J2704; J2765; J2795; J3010; J7120

== ENCOUNTER 2022-07-08 16:53 | Emergency (ER) | payer BC, SELFPAY ==
[2022-07-08 17:03] VITALS: BP 159/119; PULSE 95; RESP 21; TEMP 37; O2SAT 95; BMI 30.7
[2022-07-08 18:05] LABS: Add Urine Microscopic? YES; Bilirubin Urine Neg (Negative); Blood Urine 3+ (Negative); Glucose Urine UA Norm (Normal); Ketones Urine 1+ (Negative); Leukocyte Esterase Urine 2+ (Negative); Nitrate Urine Negative (Negative); Protein Urine Neg (Negative); Specific Gravity, Urine 1.015 (1.005-1.030); Urine Appearance Hazy (CLEAR); Urine Color Yellow (Yellow); Urobilinogen Urine Norm (Negative); pH Urine 7 (5-7)
[2022-07-08 18:08] LABS: Bacteria Urine TRACE /hpf; RBC Urine 50-80 /hpf (0-2); WBC Urine 0-4 /hpf (0-5)
[2022-07-08 18:09] LABS: Add Urine Culture? Yes
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
[2022-07-08 18:42] VITALS: BP 141/85; PULSE 85; RESP 16; O2SAT 97
[2022-07-08 18:51] LABS: Basophils % 0.2 %; Eosinophils # 0.1 10^3/uL (0.0-0.8); Eosinophils % 0.4 %; Hematocrit 44.8 % (42.0-52.0); Hemoglobin 14.2 g/dL (11.7-16.6); Lymphocytes # 1.1 10^3/uL (0.8-4.8); Lymphocytes % 9.1 %; Mean Corpuscular HGB Conc 31.7 g/dL (30.0-36.0); Mean Corpuscular Hemoglobin 30.1 pg (28.0-34.0); Mean Corpuscular Volume 95.1 fl (80-94); Mean Platelet Volume 10.6 fL (7.4-10.4); Monocytes # 1.3 10^3/uL (0.2-0.9); Monocytes % 10.4 %; Neutrophils # 9.83 10^3/uL (1.8-7.7); Neutrophils % 79.7 %; Nucleated Red Blood Cells % 0 %; Platelet Count 229 10^3/cmm (130-400); Red Blood Count 4.71 10^6/uL (4.1-5.3); Red Cell Distribution Width 12.5 % (12.1-15.1); White Blood Count 12.4 10^3/uL (4.0-10.0)
[2022-07-08 19:09] LABS: Erythrocyte Sedimentation Rate 62 mm/hr (0-10)
[2022-07-08 19:18] LABS: Anion Gap 17.9 (5-19); Blood Urea Nitrogen 8 mg/dL (8-23); C Reactive Protein 154.5 mg/L (0.0-4.9); Calcium 9.5 mg/dL (8.5-10.5); Carbon Dioxide 23 mmol/L (22-29); Chloride 97 mmol/L (98-107); Glomerular Filtration Rate 134.8 mL/min (90-130); Glucose 129 mg/dL (65-115); Osmolality Calculated 278 mOsm/kg (285-295); Potassium 3.9 mmol/L (3.5-5.1); Sodium 134 mmol/L (136-145)
[2022-07-08 20:40] VITALS: BP 140/77; PULSE 109; RESP 18; O2SAT 95
== END 2022-07-08 20:15 | disposition home or self-care (01) ==
PROVIDERS: Emergency Provider Family Medicine; PCP Family Medicine
DX: R33.9 Retention of urine, unspecified (principal); L03.115 Cellulitis of right lower limb; Z96.651 Presence of right artificial knee joint; J44.9 Chronic obstructive pulmonary disease, unspecified; I10 Essential (primary) hypertension; Z87.891 Personal history of nicotine dependence; Z79.01 Long term (current) use of anticoagulants
CPT/HCPCS: 36415; 51798; 80048; 81001; 85025; 85651; 86140; 87040; 87086; 99283

== ENCOUNTER 2022-07-11 18:39 | Emergency (ER) | payer BC, SELFPAY ==
[2022-07-11 19:43] VITALS: BP 144/81; PULSE 124; RESP 25; TEMP 36.8; O2SAT 94; BMI 30.4
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
[2022-07-11 20:22] VITALS: BP 127/72; PULSE 96; RESP 16; O2SAT 94
[2022-07-11] MEDS: oxybutynin 5 mg Tablet PO (20:30)
[2022-07-11 20:42] LABS: Add Urine Culture? No; Add Urine Microscopic? YES; Bacteria Urine TRACE /hpf; Bilirubin Urine Neg (Negative); Blood Urine 2+ (Negative); Glucose Urine UA Norm (Normal); Ketones Urine Negative (Negative); Leukocyte Esterase Urine 1+ (Negative); Mucus Urine TRACE /hpf; Nitrate Urine Negative (Negative); Protein Urine Neg (Negative); Squamous Epithelial Cell Urine 0-4 /hpf (0-5); Urine Appearance Clear (CLEAR); Urine Color Yellow (Yellow); Urobilinogen Urine Norm (Negative); pH Urine 7 (5-7)
[2022-07-11 20:52] VITALS: BP 113/79; PULSE 97; RESP 16; O2SAT 94
[2022-07-11 21:31] VITALS: BP 125/72; PULSE 87; RESP 16; O2SAT 94
== END 2022-07-11 21:32 | disposition home or self-care (01) ==
PROVIDERS: Emergency Provider Emergency Medicine; PCP Family Medicine
DX: T83.098A Other mechanical complication of other urinary catheter, initial encounter (principal); I10 Essential (primary) hypertension; J44.9 Chronic obstructive pulmonary disease, unspecified; Z87.891 Personal history of nicotine dependence; Y73.8 Miscellaneous gastroenterology and urology devices associated with adverse incidents, not elsewhere classified
CPT/HCPCS: 51798; 81001; 99283

== ENCOUNTER → 2022-07-18 08:23 | Outpatient (BNVA) | payer BC, SELFPAY | PROVIDERS: PCP Family Medicine; Visit Provider Nurse Practitioner Family | DX: Z96.651 Presence of right artificial knee joint (principal); Z48.89 Encounter for other specified surgical aftercare | CPT/HCPCS: 73560; 73565 ==

== ENCOUNTER 2022-07-25 06:00 | Outpatient (RCR) | payer BC, SELFPAY | END 2022-08-01 23:59 | disposition home or self-care (01) | LOC: MPT 06:00 | PROVIDERS: PCP Family Medicine; Visit Provider Nurse Practitioner Family | DX: Z47.1 Aftercare following joint replacement surgery (principal); Z96.651 Presence of right artificial knee joint | CPT/HCPCS: 97110; 97161 ==

== ENCOUNTER 2022-08-02 06:00 | Outpatient (RCR) | payer BC, SELFPAY | END 2022-09-01 23:59 | disposition home or self-care (01) | LOC: MPT 06:00 | PROVIDERS: PCP Family Medicine; Visit Provider Nurse Practitioner Family | DX: Z96.651 Presence of right artificial knee joint (principal); Z47.1 Aftercare following joint replacement surgery | CPT/HCPCS: 97110; 97140; G0283; L1812 ==

== ENCOUNTER 2022-08-02 11:09 | Outpatient (CLI) | payer BC, SELFPAY ==
--- NOTE | 2022-08-02 11:15 | USCV_ITS ---
Nathalie Pedro Age: 67 Gender: M : 1955 Exam Date: 08/02/2022 11:34 Ordering Phys: Meredith Gamino NP Technologist: JOHNATHAN [place] [facility] [place]: Swelling post rt knee replacement HISTORY: Swelling post rt knee replacement (07-05-2022) PROCEDURES: Venous duplex imaging was performed in only the right lower extremity. The following venous structures were evaluated: common femoral vein, profunda vein, proximal portion of the greater saphenous vein, superficial femoral vein, and the popliteal vein. In addition, the posterior tibial and peroneal trunk were evaluated. Serial compression, augmentation maneuvers, and spectral Doppler flow evaluation were performed. FINDINGS: Normal 2-D Doppler and augmentation and compressibility throughout the lower extremity venous structures. Additional imaging through the proximal calf veins also reveals no thrombus. Limited evaluation of the greater saphenous vein is patent with no thrombus. CONCLUSIONS No DVT right lower extremity. Dr. Claudia Burns DO (Electronically Signed) Final Date: 02 August 2022 12:01 S
== END 2022-08-02 11:10 | disposition home or self-care (01) ==
PROVIDERS: PCP Family Medicine; Visit Provider Nurse Practitioner Family
DX: R60.0 Localized edema (principal)
CPT/HCPCS: 93971

== ENCOUNTER 2022-09-02 06:00 | Outpatient (RCR) | payer BC, SELFPAY | END 2022-10-01 23:59 | disposition home or self-care (01) | LOC: MPT 06:00 | PROVIDERS: PCP Family Medicine; Visit Provider Nurse Practitioner Family | DX: Z47.1 Aftercare following joint replacement surgery (principal); Z96.651 Presence of right artificial knee joint | CPT/HCPCS: 97110; 97140; G0283 ==

== ENCOUNTER → 2022-09-25 14:23 | Outpatient (BNVA) | payer BC, SELFPAY | PROVIDERS: PCP Family Medicine; Visit Provider Student in an Organized Health Care Education/Training Program | DX: M17.12 Unilateral primary osteoarthritis, left knee (principal); Z96.651 Presence of right artificial knee joint | CPT/HCPCS: 73560; 73565 ==

== ENCOUNTER 2022-10-10 15:04 | Outpatient (CLI) | payer BC, SELFPAY ==
--- NOTE | 2022-10-10 14:45 | CT_ITS ---
WS: [id number] CT LEFT KNEE, NONCONTRAST TECHNIQUE: Noncontrast CT of the LEFT knee to include the LEFT hip and ankle. [facility] CLINICAL INFORMATION: M17.12 - Unilateral primary osteoarthritis, left knee COMPARISON: None. DLP: 907.[address] scans at [facility] [place] use at least one of these dose optimization techniques: automated e xposure control; mA and/or kV adjustment per patient size (includes targeted exams where dose is matc hed to clinical indication); or iterative reconstruction. FINDINGS: Prior postoperative changes RIGHT EDMOND. Advanced degenerative arthritis LEFT knee worse in the medial joint compartment with subchondral sclerosis. Mdle-wx-ldah articulation medial joint compartment smal l suprapatellar effusion.. Hypertrophic changes along the joint line. Hypertrophic patella. Prostate measures 4.6 cm. Incidental fat-containing LEFT inguinal hernia. CT/CT knee LT [facility] IMPRESSION: Images obtained for preoperative purposes.
== END 2022-10-10 15:05 | disposition home or self-care (01) ==
PROVIDERS: PCP Family Medicine; Visit Provider Student in an Organized Health Care Education/Training Program
DX: Z01.818 Encounter for other preprocedural examination (principal); M17.12 Unilateral primary osteoarthritis, left knee
CPT/HCPCS: 73700

== ENCOUNTER 2022-10-11 15:15 | Observation (INO) | payer BC, SELFPAY ==
[2022-10-11] VITALS (13 sets, daily range): BP systolic 90–128; BP diastolic 56–77; PULSE 62–89; RESP 11–18; TEMP 36.1–36.6; O2SAT 91–99; BMI 30.1
[2022-10-11 11:13] LABS: Add Urine Microscopic? NO; Basophils % 0.5 %; Charge for UA Resulting for Rev; Eosinophils # 0.1 10^3/uL (0.0-0.8); Hematocrit 46.3 % (42.0-52.0); Hemoglobin 15.4 g/dL (11.7-16.6); Lymphocytes % 30.2 %; Mean Corpuscular HGB Conc 33.3 g/dL (30.0-36.0); Mean Corpuscular Volume 90.1 fl (80-94); Mean Platelet Volume 10.5 fL (7.4-10.4); Monocytes # 0.9 10^3/uL (0.2-0.9); Monocytes % 13.2 %; Neutrophils # 3.47 10^3/uL (1.8-7.7); Neutrophils % 53.8 %; Nucleated Red Blood Cells % 0 %; Platelet Count 261 10^3/cmm (130-400); Red Blood Count 5.14 10^6/uL (4.1-5.3); Red Cell Distribution Width 12.6 % (12.1-15.1); White Blood Count 6.5 10^3/uL (4.0-10.0)
[2022-10-11] MEDS: acetaminophen 1,000 MG/100 ML PIGGYBACK 400 MG IV ×2 (11:15→18:26)
[2022-10-11] MEDS: sodium chloride 0.9% 1,000 ML 30 ML IV (11:15)
[2022-10-11] MEDS: ketorolac 30 mg/mL INJ IVP (11:16)
[2022-10-11 11:20] LABS: Bilirubin Urine Neg (Negative); Blood Urine Neg (Negative); Glucose Urine UA Norm (Normal); Ketones Urine Negative (Negative); Leukocyte Esterase Urine Negative (Negative); Nitrate Urine Negative (Negative); Protein Urine Neg (Negative); Specific Gravity, Urine 1.025 (1.005-1.030); Urine Appearance Clear (CLEAR); Urine Color Yellow (Yellow); Urobilinogen Urine Neg (Negative); pH Urine 5 (5-7)
[2022-10-11] MEDS: ondansetron 2 mg/ML SDV 2 mL 4 MG IVP ×2 (11:23→18:43)
[2022-10-11 12:12] LABS: Anion Gap 15.3 (5-19); Blood Urea Nitrogen 15 mg/dL (8-23); Calcium 9.1 mg/dL (8.5-10.5); Carbon Dioxide 24 mmol/L (22-29); Chloride 101 mmol/L (98-107); Glomerular Filtration Rate 112.8 mL/min (90-130); Glucose 101 mg/dL (65-115); Osmolality Calculated 283 mOsm/kg (285-295); Potassium 4.3 mmol/L (3.5-5.1); Sodium 136 mmol/L (136-145)
--- NOTE | 2022-10-11 12:15 | P.HPUD_ITS ---
Surgery/Procedure H&P Update DATE OF PROCEDURE: October 11, 2022 DATE H&P PERFORMED: 09/25/22 CHANGES TO PREVIOUS DOCUMENTATION: none. No change in patient's HPI or examination from office visit. Patient's been cleared by his primary care provider. Been seen and worked up by anesthesia cleared to proceed with surgery. The patient's preoperative labs are normal and cleared to proceed with surgical intervention. Patient has no UTI with stable hemoglobin and electrolytes. Patient understands the risk benefits complication alternatives with surgical nonsurgical treatment options. Understanding this risk for surgery he agrees to proceed with surgical interve ntion. All questions answered. Plan to proceed today with left total knee arthroplasty?Rusty robotic assisted PREOP DIAGNOSIS: Left knee DJD PRIMARY INDICATION FOR PROCEDURE: Left knee degenerative joint disease PLANNED PROCEDURE: Operation Date: 10/11/22 10:20 Proposed Procedures p Total Knee Arthroplasty(Left) - Pedro Zepeda DO
[2022-10-11] MEDS: ceFAZolin 2,000 MG in sodium chloride 0.9% (plus) 50 ML 100 MG IV ×2 (12:29→19:32)
[2022-10-11] MEDS: tranexamic acid 1,000 mg/10mL SDV 1000 MG IV (13:09)
[2022-10-11] MEDS: ketorolac 30 mg/mL INJ XX (13:28)
[2022-10-11] MEDS: EPINEPHrine 1 mg/mL INJ XX (13:28)
[2022-10-11] MEDS: tranexamic acid 1,000 mg/10mL SDV 1000 MG XX (13:28)
--- NOTE | 2022-10-11 14:38 | P.ANESUD_ITS ---
Pre-Anesthetic Update Pre-Anesthetic Assessment: Date of Surgery/Procedure: 10/11/22 Preop Jacqui gnosis: Left knee DJD Proposed Procedure: Operation Date: 10/11/22 10:20 Proposed Procedures p Total Knee Arthroplasty(Left) - Pedro Zepeda, DO Any changes to Pre-Anesthetic Assessment?: No Last Intake: Intake Last Liquid Date 10/10/22 Last Liquid Time 20:30 Last Solid Date 10/10/22 Last Solid Time 20:30 Labs Last 48hrs: Short CBC 10/11/22 Range/Units 11:00 WBC 6.5 (4.0-10.0) 10^3/ uL Hgb 15.4 (11.7-16.6) g/dL Hct 46.3 (42.0-52.0) % MCV 90.1 (80-94) fl Plt Count 261 (130-400) 10^3/c mm Neut % (Auto) 53.8 % Neut # (Auto) 3.47 (1.8-7.7) 10^3/u L BMP 10/11/22 11:00 Sodium 136 Potassium 4.3 Chloride 101 Carbon Dioxide 24 BUN 15 Creatinine 0.7 Glucose 101 Calcium 9.1 Urine 10/11/22 Range/Units 11:00 Urine Color Yellow (Yellow) Urine Appearance Clear (CLEAR) Urine pH 5 (5-7) Ur Specific Gravit y 1.025 (1.005-1.030) Urine Protein Neg (Negative) Urine Glucose (UA) Norm (Normal) Urine Ketones Negative (Negative) Urine Nitrate Negative (Negative) Urine Bilirubin Neg (Negative) Ur Leukocyte Patricia ase Negative (Negative) Blood Bank 10/11/22 11:00 Blood Type O Negative Rho(D) Type Negative Antibody Screen Negative Vitals: Temperature 97.6 F 10/11/22 11:11 Temperature Source Temporal Artery S can 10/11/22 11:11 Pulse Rate 62 10/11/22 11:11 Respiratory Rate 16 10/11/22 11:11 Blood Pressure 128/77 10/11/22 11:11 Blood Pressure Anuja n 94 10/11/22 11:11 Pulse Oximetry 96 10/11/22 11:11 Oxygen Delivery Me thod Room Air 10/11/22 11:11 Exam: Pre-Anes Outpt Exam: alert, oriented x 3, clear to auscultation bilaterally and regular rate & rhythm Cardiac Studies: Echocardiogram 06/08/22 Holter Monitor 05/23/22 Anesthesia Procedures Nerve Block: Nerve Block 1: Main Anesthesia: spinal anesthesia block Time Out Performed: Yes Consent: requested by attending/covering physician, from patient, risks and benefits reviewed and patient agrees to proceed Nerve block location: adductor canal (left) Anesthesia monitors applied: pulse oximetry, EKG, BP cuff and oxygen Nerve block position: supine Anesthetic Used: ropivicaine 0.5% Amount of anesthesia used (mL): 20 Ultrasound used to: recognize landmarks Nerve Stimulator Used?: No Interscalene/Femoral BLK: 4 stimuplex 21 g needle used for position and inplane approach Injection: neg aspiration of heme Patient Tolerated Procedure: well Complications: none
--- NOTE | 2022-10-11 15:10 | XRR_ITS ---
PROCEDURE INFORMATION: Exam: XR Left Knee Exam date and time: 10/11/2022 2:12 PM Age: 67 years old Clinical indication: Device placement; Joint replacement hardware; Prior surgery; Surgery date: Post-operative (0-2 days); Surgery type: Post L tka; Additional info: Post L tka, do in pacu TECHNIQUE: Imaging protocol: Radiologic exam of the left knee. Views: 1 or 2 views. COMPARISON: CT knee LT [facility] 10/10/2022 3:44 PM FINDINGS: Bones/joints: Recently placed left total knee arthroplasty in expected alignment. Soft tissues: Soft tissue swelling and gas along the anterior knee consistent with recent surgical procedure. XR/XR knee LT 1-2V [id number] IMPRESSION: Recently placed left total knee arthroplasty in expected alignment.
--- NOTE | 2022-10-11 15:27 | P.OP_ITS ---
Operative Report Date of procedure: October 11, 2022 Pre-op diagnosis: Preop Diagnosis Left knee degenerative joint disease Procedure: Post-op diagnosis: Same Procedure done: Left total knee arthroplasty, cemented?robotic assisted Rusty Implants: Manton triathlon size 5 femur?CR cemented left Manton triathlon size 5 tibia universal baseplate cemented Oneil triathlon asymmetric patella size 32 mm Manton triathlon polyethylene 10 mm Surgeon: Pedro Zepeda DO Estimated blood loss: 25 mL Tourniquet 71minutes IV fluids: 1300 mL Urine output: No Lopez Complications: None Condition: stable Disposition: floor Brief History: Pedro is a pleasant 67-year-old gentleman with chronic left knee degenerative joint disease.? Patient's failed conservative treatment has penr-es-tuvg arthritis has been very satisfied with his right total knee arthroplasty at this point in time he through shared decision making elected to proceed with surgical intervention for left total knee arthroplasty. We talked about continued conservative treatment and surgical intervention as far as the risk benefits complications alternatives surgical and nonsurgical treatment options.? At this point time understanding his risks with surgery he agrees to proceed with surgical intervention.? Once again his risk with surgery include but are not limited to make it better make it worse blood clot, heart attack, stroke, on the table, infection, injury to nerves or vessels, persistent pain, arthrofibrosis, implant failure.? Understanding these risks he agrees to proceed with surgical intervention consent was obtained in the office. All questions answered. Procedure: Patient was seen and evaluated in the preoperative holding area.? Consent was reviewed and signed with patient with plan for left total knee arthroplasty.? All questions answered.? Correct extremity marked.? Patient seen and evaluated by the anesthesia department and once cleared for surgery was taken back to the operative suite.? Patient was placed into a supine position on the OR table.? All bony prominences were well-padded.? Patient was appropriately secured to the bed.? Patient underwent anesthesia per the anesthesia department.? Patient received spinal anesthesia and no Lopez catheter was applied as patient had issues with Lopez catheter on last hospitalization.? A nonsterile tourniquet was applied to the left thigh.? At this point in time a final timeout performed.? Patient received appropriate preoperative antibiotics and TXA. Next the left lower extremity was then prepped and draped in standard orthopedic fashion.?Esmarch tourniquet was used exsanguinate the left lower extremity.? Tourniquet was insufflated to 250 mmHg. A standard anterior incision was made over midline of the knee.? Sharp scalpel excision through skin and subcutaneous tissue full-thickness skin flaps were made.? Fascia was elevated off of the extensor retinaculum was stable with medial parapatellar arthrotomy was then made.? The performed standard sequential releases with a medial release was patient had a varus deformity.? Next the the patella was then stuffed and the knee was then flexed.? Jerod was placed superiorly around the anterior aspect of the femur this was freed of synovium and I subsequently then placed by 2 femur pins to establish my femur arrays for the [employer] robot.? These were then placed bicortically and? femur array was then appropriately secured with appropriate visualization.? Next attention was turned towards the tibial rays.? These were then drilled sequentially bicortically in parallel fashion and intraincisional.? I then placed my guide as well as my tibial array on in place.? This was appropriately secured and had excellent visualization with the Rusty robot.? Next the tibial checkpoint as well as femur checkpoint were then placed.? At this point time I then subsequently established my head center as well as my medial lateral malleoli as well as my checkpoints.? Next utilizing standard [employer]Matrix technology I then mapped out the appropriate points and confirmation points around the femur as well as the tibia in standard fashion.? Once this was then d one I then removed all osteophytes in preparation for dynamic testing.? All osteophytes were removed as well as I removed the ACL and the PCL was excised due to its significant tearing and degeneration noted. At this point time the knee was brought into full extension and we performed our standard evaluation of our gap balancing stressing his ligaments and extension as well as flexion appropriate adjustments were made to have appropriate gap balancing in both flexion and extension.? This plan for final counts.? We get a preoperative plan evaluating our implants which was a size 5 femur and a size 5 tibia.? Next we brought in the Rusty robot and sequentially made our femur cuts.? All excess bony cuts were then removed.? Finally we made our tibial cut.? Once this was done a standard PCL retractor was then placed into this position I excised the medial and lateral meniscus.? The tibial cut was then subsequently removed all excess bony debris was removed.? I then utilized a lamina professor of biblical studies and remove the posterior osteophytes.? At this point time sized the tibia and confirmed this was a size 5.? I utilized our blunt probe to establish rotation of tibial implant.? Once this was done I then placed my tibia size 5 trial in appropriate position and then subsequently placed tibial pins to hold this into place placed a size 9 mm poly as well as a size 5 femur which was appropriately impacted in place knee was then subsequently brought into extension.? It was noted in flexion and extension patient was just tight slightly medial with a tight MCL. At this point to balance my gaps medially and laterally I then subsequently utilized a 18-gauge spinal needle and fenestrated the MCL which allowed for excellent gap balancing while still maintaining medial integrity. I increased my policy thickness to 10 mm and this was stable with varus valgus stress in extension as well as flexion. Patient had symmetric subtle translation in flexion with symmetric gaps. Once this was done I had excellent balance gaps in flexion and extension with varus and valgus stresses.? At this point I was satisfied with these implants these were then verified and opened on the back table size 5 tibia, size 5 femur,? size 10 mm polythickness.? We did confirm appropriate gap balancing and stresses as well as alignment utilizingDivina Ojeda and were satisfied with this plan.? At this point time with my trials in place I then towel clip the patella everted this made appropriate measurements subsequently utilizing freehand technique performed by patellar resurfacing this was confirmed to be appropriate resection and subsequently sized to be a 32 mm asymmetric.? My drill peg guides were then clamped and appropriate position and appropriate position in the patella for appropriate tracking and parallel with the joint.? Pegs were drilled trial implant was placed and the knee was then subsequently ranged and found to have excellent patellar tracking.? Femur pegs were then drilled.? Satisfied with our tibial placement rotation I then utilized the keel punch and prepped the tibia.? At this point time all of our trial implants were removed.? All checkpoints as well as guidepins and arrays were removed and appropriate counts made.? The wound bed? was thoroughly irrigated and dried and prepped for cementation.? Cement was mixed on the back table.? Once cement was ready this was then covered onto the tibia and the tibial baseplate was then impacted and all excess cement was removed.? Next the polyethylene was then impacted into place on the tibial baseplate.? Next cement was placed onto the femur as well as under the femur implants and impacted in to place and all excess cement was extruded.? Knee was taken into full extension? to clear all excess cement was removed.? Warm saline was placed over the joint.? I then towel clip patella and dried for cementation. cemented the patella into place.? This was all clamped and the cement was allowed to cure.? Thorough irrigation performed with pulse lavage.? I then placed my periarticular injection while the cement was curing.? Once cured the knee was taken through range of motion and had excellent stability and gaps were balanced in flexion and extension.? Tourniquet was then deflated.? Once tourniquet was deflated hemostasis satisfactory with electrocautery.? Next I then subsequently closed the capsule with Ethibond suture as well as a running strata fix suture.? Knee was then taken through range of motion 30 times.? Next the skin was then closed in layered fashion of running stratifix sutures of deep ans subcutenous tissue and skin. He was closed in flexion and Prineo glue was then placed over the incision this allowed to cure.? Incision was covered with ABDs soft roll and Steven wrap.? Patient was then awakened from anesthesia and taken to PACU in stable condition. Disposition: Patient taken to PACU in stable condition will be admitted to the floor for pain control PT/OT weight-bear as tolerated left lower extremity dressing changes as needed, DVT prophylaxis.?Pain control. Patient will receive appropriate postoperative antibiotics. patient will be seen today by the internal medicine team for medical management.? Patient will follow up with the office in 2 weeks.? Patient understands agrees with current plan.? All questions answered.
--- NOTE | 2022-10-11 15:27 | PM.OP2 ---
Brief Operative Note Date of procedure: 10/11/22 Pre-op diagnosis: Left knee degenerative joint disease Post-op diagnosis: same Procedure Done: Left total knee arthroplasty cemented?Rusty robotic assisted Surgeon: Pedro Zepeda Estimated blood loss (mL): 25 Complications: None Post-op Plan: Patient taken to PACU in stable condition recovering well. Patient received spinal anesthesia. Patient to recover in PACU and will be admitted to the floor postoperatively internal medicine will be on board for medical management and assistance. Patient receive appropriate postoperative pain medication, DVT prophylaxis antibiotics TXA PT/OT weight-bear as tolerated left lower extremity knee range of motion as tolerated. Plan to likely discharge home tomorrow. Given patient had issues with postoperative urinary retention last time no Lopez was applied as well as communicated with hospitalist and will start patient immediately on Flomax this evening Condition: stable Disposition: floor Coding Level of Care Code Acute Code for Karsten Meraz
--- NOTE | 2022-10-11 15:27 | PM.PACU ---
PACU note Narrative: Patient taken to PACU in stable condition recovering well. Spinal anesthesia still in effect unable to assess motor or sensory to the left lower extremity. Distal pulses are palpable toes warm well-perfused brisk capillary refill less than 2 seconds compartments are soft compressible. Exam: awake Disposition: admitted
--- NOTE | 2022-10-11 15:27 | ANE.PACU2 ---
Inpatient post-anesthesia follow up: Airway intact: Yes Vital signs: Temperature 97.0 F Pulse Rate 73 Respiratory Rate 11 Blood Pressure 102/66 Pulse Oximetry 93 Oxygen Delivery Me thod Room Air Oxygen Flow Rate 6 Fraction of Inspir ed Oxygen Hydration adequate: Yes Nausea and vomiting: No Pain level: 1 Mental status: Baseline
[2022-10-11] MEDS: calcium carb-vit d 600mg/400unit 1 Tablet 1 EACH PO (17:28)
[2022-10-11] MEDS: benzonatate 100 mg Capsule 200 MG PO (17:28)
[2022-10-11] MEDS: iron polysaccharide complex 150 mg Capsule PO (17:29)
[2022-10-11] MEDS: docusate sodium 100 mg Capsule PO (17:29)
[2022-10-11] MEDS: lactated ringers 1,000 ML 100 ML IV (17:31)
[2022-10-11] MEDS: mupirocin oint 22 gm 1 APPLIC NASAL (17:31)
[2022-10-11] MEDS: chlorhexidine gluconate 0.12% UDC 15 mL MUCOUS MEM ×2 (17:32→20:31)
[2022-10-11] MEDS: oxyCODONE 5 mg IR Tab/Cap PO (18:26)
[2022-10-11] MEDS: guaiFENesin 100 mg/5 mL UDC 10 mL 200 MG PO (18:46)
--- NOTE | 2022-10-11 18:54 | NUR.SHIFT ---
bladder scan showed 218ml
[2022-10-11] MEDS: tamsulosin 0.4 mg Capsule PO (19:27)
[2022-10-12] VITALS (7 sets, daily range): BP systolic 103–114; BP diastolic 61–69; PULSE 62–92; RESP 15–18; TEMP 36.4–37; O2SAT 92–95
[2022-10-12] MEDS: acetaminophen 1,000 MG/100 ML PIGGYBACK 400 MG IV ×2 (03:00→11:42)
[2022-10-12] MEDS: ondansetron 2 mg/ML SDV 2 mL 4 MG IVP ×2 (03:38→11:40)
[2022-10-12] MEDS: ketorolac 30 mg/mL INJ 15 MG IVP ×2 (03:38→09:37)
[2022-10-12] MEDS: lactated ringers 1,000 ML 100 ML IV ×2 (03:40→05:09)
[2022-10-12] MEDS: ceFAZolin 2,000 MG in sodium chloride 0.9% (plus) 50 ML 100 MG IV ×2 (03:40→12:36)
[2022-10-12 05:23] LABS: Basophils % 0.2 %; Eosinophils # 0.1 10^3/uL (0.0-0.8); Eosinophils % 0.8 %; Hematocrit 39.8 % (42.0-52.0); Hemoglobin 12.8 g/dL (11.7-16.6); Lymphocytes % 8.4 %; Mean Corpuscular HGB Conc 32.2 g/dL (30.0-36.0); Mean Corpuscular Hemoglobin 29.8 pg (28.0-34.0); Mean Corpuscular Volume 92.8 fl (80-94); Mean Platelet Volume 11.1 fL (7.4-10.4); Monocytes # 0.9 10^3/uL (0.2-0.9); Monocytes % 7.5 %; Neutrophils # 9.65 10^3/uL (1.8-7.7); Neutrophils % 82.8 %; Nucleated Red Blood Cells % 0 %; Platelet Count 212 10^3/cmm (130-400); Red Blood Count 4.29 10^6/uL (4.1-5.3); Red Cell Distribution Width 12.8 % (12.1-15.1); White Blood Count 11.7 10^3/uL (4.0-10.0)
[2022-10-12 05:41] LABS: Anion Gap 12.1 (5-19); Blood Urea Nitrogen 14 mg/dL (8-23); Calcium 8.9 mg/dL (8.5-10.5); Carbon Dioxide 25 mmol/L (22-29); Chloride 100 mmol/L (98-107); Glomerular Filtration Rate 84.4 mL/min (90-130); Glucose 122 mg/dL (65-115); Osmolality Calculated 278 mOsm/kg (285-295); Potassium 4.1 mmol/L (3.5-5.1); Sodium 133 mmol/L (136-145)
[2022-10-12] MEDS: aspirin 325 mg Tablet PO (08:20)
[2022-10-12] MEDS: calcium carb-vit d 600mg/400unit 1 Tablet 1 EACH PO (08:20)
[2022-10-12] MEDS: iron polysaccharide complex 150 mg Capsule PO (08:20)
[2022-10-12] MEDS: chlorhexidine gluconate 0.12% UDC 15 mL MUCOUS MEM (08:20)
[2022-10-12] MEDS: multivitamin therapeutic Tablet 1 TAB PO (08:20)
[2022-10-12] MEDS: tamsulosin 0.4 mg Capsule PO (08:20)
[2022-10-12] MEDS: docusate sodium 100 mg Capsule PO (08:20)
[2022-10-12] MEDS: mupirocin oint 22 gm 1 APPLIC NASAL (08:24)
[2022-10-12] MEDS: oxyCODONE 5 mg IR Tab/Cap PO (12:34)
--- NOTE | 2022-10-12 13:57 | PM.DCS ---
Discharge Providers Date of Admission: 10/11/22 15:15 Date of Discharge: October 12, 2022 Attending Provider at Admission: Pedro Zepeda DO Attending Provider at Discharge: Pedro Zepeda DO Consults: Dr. Swain hospitalist Primary Care Provider: Samantha Archibald MD Diagnoses at Discharge Discharge Diagnosis (1) S/P total knee replacement using cement: Status: Acute Qualifiers: Laterality: right Qualified Code(s): Z96.651 - Presence of right artificial knee joint (2) COPD (chronic obstructive pulmonary disease): Status: Acute Qualifiers: COPD type: chronic bronchitis Chronic bronchitis type: simple Qualified Code(s): J41.0 - Simple chronic bronchitis (3) GERD (gastroesophageal reflux disease): Status: Acute (4) BPH (benign prostatic hyperplasia): Status: Acute Qualifiers: Lower urinary tract symptom presence: symptoms present Lower urinary tract symptom detail: weak urinary stream Qualified Code(s): N40.1 - Benign prostatic hyperplasia with lower urinary tract symptoms; R39.12 - Poor urinary stream Reason for Visit Reason for Visit: Total Knee Arthroplasty Brief History: Left knee degenerative joint disease patient underwent left total knee arthroplasty Hospital Course Hospital Course Patient presented to the preoperative holding area with plan for left total knee arthroplasty after patient has been worked up in the outpatient setting for failed conservative treatment of left knee degenerative joint disease.? Once cleared by anesthesia for surgery patient subsequently was taken back to the operative suite she underwent spinal anesthesia and then subsequently underwent a left total knee arthroplasty.? Procedure was performed without any complications patient was taken to PACU in stable condition patient? recovered well in PACU and then was admitted to the floor postoperatively internal medicine was consulted and on board for medical management and assistance with care.? Patient received appropriate PT/OT, postoperative antibiotics, postoperative TXA, pain control, postoperative DVT prophylaxis.? Elevation and ice.? Patient encouraged for knee range of motion allowed weightbearing as tolerated to the left lower extremity.? Dressing was changed as needed, labs were monitored daily.? Patient had issues with postoperative urinary retention on his last total knee and subsequently no Lopez was applied and he was placed on Flomax postoperatively for assistance. Patient recovered well postoperatively and worked well and progressed well with therapy.? It was determined on postoperative day 1 the patient was stable for discharge from an orthopedic standpoint. Patient was comfortable with discharge and plan was discharged home.? Patient received appropriate discharge instructions as well as pain medication and DVT prophylaxis postoperatively.? Given appropriate instructions for dressing management.? Patient will follow-up with Dr. Zepeda/orthopedics in the office in 2 weeks.? All questions answered.? Understand if there is any issues questions or concerns and contact the office. Physical Exam Narrative: Dressing on in place to the left lower extremity with Steven wrap on. This is not subsequently taken down, compartments of the left lower extremity were soft and compressible. Normal postoperative pain and swelling the left knee. Patient is able to wiggle Toes, toes are warm well-perfused brisk capillary refill less than 2 seconds, distal pulses palpable. Spinal anesthesia worn off and his sensation intact light touch distally. Discharge Data Studies Completed and Pending Completed Studies During Hospitalization Category Date Time Status XR knee LT 1-2V [id number] Routine Exams 10/11/22 15:10 Completed Pending at discharge Category Date Time Status Basic Metabolic Panel AM LABS Lab 10/13/22 04:00 Ordered Basic Metabolic Panel AM LABS Lab 10/14/22 04:00 Ordered Complete Blood Count w/Auto AM LABS Lab 10/13/22 04:00 Ordered Complete Blood Count w/Auto AM LABS Lab 10/14/22 04:00 Ordered Radiology Impressions Knee X-Ray 10/11/22 15:10 IMPRESSION: Recently placed left total knee arthroplasty in expected alignment. Laboratory Results WBC 11.7 10^3/uL (4.0-10.0) H 10/12/22 05:03 RBC 4.29 10^6/uL (4.1-5.3) 10/12/22 05:03 Hgb 12.8 g/dL (11.7-16.6) 10/12/22 05:03 Hct 39.8 % (42.0-52.0) L 10/12/22 05:03 MCV 92.8 fl (80-94) 10/12/22 05:03 MCH 29.8 pg (28.0-34.0) 10/12/22 05:03 MCHC 32.2 g/dL (30.0-36.0) 10/12/22 05:03 RDW 12.8 % (12.1-15.1) 10/12/22 05:03 Plt Count 212 10^3/cmm (130-400) 10/12/22 05:03 MPV 11.1 fL (7.4-10.4) H 10/12/22 05:03 Neut % (Auto) 82.8 % 10/12/22 05:03 Lymph % (Auto) 8.4 % 10/12/22 05:03 [place] % (Auto) 7.5 % 10/12/22 05:03 Eos % (Auto) 0.8 % 10/12/22 05:03 Baso % (Auto) 0.2 % 10/12/22 05:03 Neut # (Auto) 9.65 10^3/uL (1.8-7.7) H 10/12/22 05:03 Lymph # (Auto) 1.0 10^3/uL (0.8-4.8) 10/12/22 05:03 [place] # (Auto) 0.9 10^3/uL (0.2-0.9) 10/12/22 05:03 Eos # (Auto) 0.1 10^3/uL (0.0-0.8) 10/12/22 05:03 Baso # (Auto) 0.0 10^3/uL (0.0-0.1) 10/12/22 05:03 Nucleated RBC % (auto) 0 % 10/12/22 05:03 Nucleated RBCs # 0.0 /100WBC 10/12/22 05:03 Sodium 133 mmol/L (136-145) L 10/12/22 05:03 Potassium 4.1 mmol/L (3.5-5.1) 10/12/22 05:03 Chloride 100 mmol/L (98-107) 10/12/22 05:03 Carbon Dioxide 25 mmol/L (22-29) 10/12/22 05:03 Anion Gap 12.1 (5-19) 10/12/22 05:03 BUN 14 mg/dL (8-23) 10/12/22 05:03 Creatinine 0.9 mg/dL (0.7-1.2) 10/12/22 05:03 GFR Calculation 84.4 mL/min (90-130) L 10/12/22 05:03 Glucose 122 mg/dL (65-115) H 10/12/22 05:03 Calculated Osmolality 278 mOsm/kg (285-295) L 10/12/22 05:03 Calcium 8.9 mg/dL (8.5-10.5) 10/12/22 05:03 Urine Color Yellow (Yellow) 10/11/22 11:00 Urine Appearance Clear (CLEAR) 10/11/22 11:00 Urine pH 5 (5-7) 10/11/22 11:00 Ur Specific [place] 1.025 (1.005-1.030) 10/11/22 11:00 Urine Protein Neg (Negative) 10/11/22 11:00 Urine Glucose (UA) Norm (Normal) 10/11/22 11:00 Urine Ketones Negative (Negative) 10/11/22 11:00 Urine Blood Neg (Negative) 10/11/22 11:00 Urine Nitrate Negative (Negative) 10/11/22 11:00 Urine Bilirubin Neg (Negative) 10/11/22 11:00 Urine Urobilinogen Neg mg/dL (Negative) 10/11/22 11:00 Ur Leukocyte Esterase Negative (Negative) 10/11/22 11:00 Blood Type O Negative 10/11/22 11:00 Rho(D) Type Negative 10/11/22 11:00 Antibody Screen Negative 10/11/22 11:00 Procedures Performed Left total knee arthroplasty, cemented?Rusty robotic assisted Vitals Last Vital Signs Temp 97.5 F L 10/12/22 11:29 Pulse 70 10/12/22 11:29 Resp 18 10/12/22 12:34 BP 114/69 10/12/22 11:29 Pulse Ox 95 10/12/22 11:29 O2 Del Method Room Air 10/12/22 11:29 O2 Flow Rate 6 10/11/22 15:10 Discharge Plan Discharge Patient Disposition: Home Condition: Stable Prescriptions: New aspirin 325 mg tablet 325 mg PO BID 14 Days Qty: 28 0RF Percocet 5-325 mg tablet 1 tab PO Q6H PRN (Reason: pain) 7 Days Qty: 28 0RF Colace 100 mg capsule 100 mg PO DAILY PRN (Reason: constipation) 10 Days Qty: 10 0RF ondansetron 4 mg tablet,disintegrating 4 mg PO DAILY 5 Days Qty: 5 0RF omeprazole 10 mg capsule,delayed release(DR/EC) 10 mg PO DAILY 14 Days Qty: 14 0RF calcium carbonate-vitamin D3 600 mg-10 mcg (400 unit) Tablet 1 tab PO BID 30 Days Qty: 60 0RF tamsulosin 0.4 mg capsule 0.4 mg PO DAILY Qty: 60 0RF methocarbamol 500 mg tablet 500 mg PO Q8H PRN (Reason: Postoperative muscle spasms) 14 Days Qty: 42 0RF Continued (DME) knee brace See Rx Instructions .Route .MEDSUPPLY Qty: 1 0RF Rx Instructions: As directed albuterol sulfate [ProAir HFA] 90 mcg/actuation HFA aerosol inhaler 2 puff inhalation QID PRN (Reason: shortness of breath or wheezing) 30 Days Qty: 18 5RF hydrochlorothiazide 25 mg tablet 25 mg PO QAM 90 Days Qty: 90 1RF lisinopril 20 mg tablet 20 mg PO DAILY 90 Days Qty: 90 1RF Advair HFA 230-21 mcg/actuation HFA aerosol inhaler 2 puff INHALATION BID Discontinued trazodone 50 mg tablet 50 mg PO BEDTIME Discharge Orders: Discharge Order (Routine); Ordered 10/12/22 Ordered By: Giuliana Swain Other Ambulatory Orders: Physical Therapy Outpatient in Home Eval and Treat Other (Order) Facility: [facility] - Location: Physical Therapy Ordered By: Pedro Zepeda Referrals: Pedro Zepeda DO [Physician] - 10/26/22 2:00 pm (APPOINTMENT WITH [facility]) Samantha Archibald MD [Primary Care Provider] - 10/18/22 11:00 am Discharge Diet: Advance as tolerated Discharge Activity: Increase activity as tolerated and As per PT/OT instructions Patient Instructions: Aspirin (By mouth), Laxative, Stool Softeners (By mouth), Ondansetron (By mouth), Tamsulosin (By mouth), Knee Replacement (GEN), Opioid Safety Activity Restrictions/Additional Instructions: Orthopedic discharge instructions: Patient should leave Steven bandage dressing on in place for 48 to 72 hours after that may remove bandage. May clean around white bandage covering the incision leave this bandage on for 7 days postoperatively at that time may remove and then rinse incision with warm soapy water pat dry and redress with a dry dressing. Weight-bear as tolerated the left lower extremity Encourage knee range of motion as tolerated Take omeprazole (Prilosec) for heartburn/postoperative reflux Take Muscle relaxer as needed(robaxin) Take pain medication as prescribed Take aspirin 325 mg twice daily for blood clot prevention Take antinausea medication as needed Supplement with Citracal vitamin D for bone health and healing Supplement with Colace for constipation if needed Follow-up with Dr. Zepeda in the office in 2 weeks Contact the office for any questions or concerns Discharge Attestations Time Spent in Discharge Care*: greater than 30 min Quality Metrics Clinical Quality Measures [ No reported AMI, CVA or VTE this stay] Coding Level of Care Code Acute Code for Chg Fwd Diagnoses S/P total knee replacement using cement Z96.651 Laterality: right COPD (chronic obstructive pulmonary disease) J41.0 COPD type: chronic bronchitis Chronic bronchitis type: simple GERD (gastroesophageal reflux disease) K21.9 BPH (benign prostatic hyperplasia) N40.1; R39.12 Lower urinary tract symptom presence: symptoms present Lower urinary tract symptom detail: weak urinary stream
== END 2022-10-12 14:07 | disposition home or self-care (01) ==
LOC: MEDSURG 15:15
PROVIDERS: Admitting Provider Student in an Organized Health Care Education/Training Program; PCP Family Medicine; Visit Provider Student in an Organized Health Care Education/Training Program
PROC: 8E0Y0CZ Robotic Assisted Procedure of Lower Extremity, Open Approach (ICD-10-PCS; CPT 27447; principal; 2022-10-11 09:50)
DX: M17.12 Unilateral primary osteoarthritis, left knee (principal); N40.1 Benign prostatic hyperplasia with lower urinary tract symptoms; R39.12 Poor urinary stream; Z96.651 Presence of right artificial knee joint; K21.9 Gastro-esophageal reflux disease without esophagitis; J44.9 Chronic obstructive pulmonary disease, unspecified
CPT/HCPCS: 0054T; 27447; 36415; 73560; 80048; 81003; 85025; 86850; 86900; 97116; 97161; 97165; 97530; C1776; G0378; J0131; J0171; J0690; J1885; J2405; J2704; J2795; J3010; J3490; J7030; J7120

== ENCOUNTER 2022-10-18 06:00 | Outpatient (RCR) | payer BC, SELFPAY | END 2022-11-01 23:59 | disposition home or self-care (01) | LOC: MPT 06:00 | PROVIDERS: Visit Provider Student in an Organized Health Care Education/Training Program | DX: Z47.1 Aftercare following joint replacement surgery (principal); Z96.659 Presence of unspecified artificial knee joint | CPT/HCPCS: 97110; 97140; 97161; G0283 ==

== ENCOUNTER → 2022-10-19 11:59 | Outpatient (BNVA) | payer BC, SELFPAY | PROVIDERS: Visit Provider Family Medicine | DX: K29.70 Gastritis, unspecified, without bleeding (principal); R10.9 Unspecified abdominal pain; K92.1 Melena | CPT/HCPCS: 80053; 83540; 83690; 85025 ==

== ENCOUNTER 2022-10-21 12:28 | Emergency (ER) | payer BC, SELFPAY ==
[2022-10-21 12:37] VITALS: BP 136/85; PULSE 90; RESP 16; TEMP 36.6; O2SAT 99
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
[2022-10-21] MEDS: diphenhydrAMINE 50 mg/mL SDV 1mL IVP (12:46)
[2022-10-21] MEDS: sodium chloride 0.9% 1,000 ML 999 ML IV (12:46)
[2022-10-21] MEDS: metoclopramide 5 mg/mL SDV 2 mL 10 MG IVP (12:47)
[2022-10-21 13:00] LABS: Basophils # 0.1 10^3/uL (0.0-0.1); Basophils % 0.8 %; Eosinophils # 0.4 10^3/uL (0.0-0.8); Eosinophils % 3.6 %; Hematocrit 46.4 % (42.0-52.0); Lymphocytes # 1.7 10^3/uL (0.8-4.8); Lymphocytes % 17.4 %; Mean Corpuscular HGB Conc 32.3 g/dL (30.0-36.0); Mean Corpuscular Hemoglobin 29.4 pg (28.0-34.0); Mean Platelet Volume 10.2 fL (7.4-10.4); Monocytes # 1.1 10^3/uL (0.2-0.9); Monocytes % 11.9 %; Neutrophils # 6.34 10^3/uL (1.8-7.7); Nucleated Red Blood Cells % 0 %; Platelet Count 397 10^3/cmm (130-400); Red Cell Distribution Width 12.3 % (12.1-15.1); White Blood Count 9.6 10^3/uL (4.0-10.0)
[2022-10-21 13:08] VITALS: BP 126/91; O2SAT 96
[2022-10-21 13:24] LABS: Alanine Aminotransferase 23 U/L (0-41); Albumin Level 4.2 g/dL (3.5-5.2); Alkaline Phosphatase 94 U/L (40-130); Blood Urea Nitrogen 23 mg/dL (8-23); Calcium 9.7 mg/dL (8.5-10.5); Carbon Dioxide 25 mmol/L (22-29); Chloride 98 mmol/L (98-107); Glomerular Filtration Rate 74.8 mL/min (90-130); Glucose 112 mg/dL (65-115); Lipase 15 U/L (13-60); Osmolality Calculated 288 mOsm/kg (285-295); Sodium 137 mmol/L (136-145); Total Bilirubin 0.6 mg/dL (0.15-1.2); Total Protein 7.2 g/dL (6.6-8.7)
[2022-10-21 13:25] LABS: Anion Gap 18.8 (5-19); Aspartate Amino Transferase 15 U/L (0-40); Potassium 4.8 mmol/L (3.5-5.1)
[2022-10-21 13:30] VITALS: BP 135/74; PULSE 88; RESP 14; O2SAT 92
--- NOTE | 2022-10-21 13:46 | CTR_ITS ---
PROCEDURE INFORMATION: Exam: CT Abdomen And Pelvis With Contrast Exam date and time: 10/21/2022 2:00 PM Age: 67 years old Clinical indication: Vomiting TECHNIQUE: Imaging protocol: Computed tomography of the abdomen and pelvis with contrast. Radiation optimization: All CT scans at this facility use at least one of these dose optimization techniques: automated exposure control; mA and/or kV adjustment per patient size (includes targeted exams where dose is matched to clinical indication); or iterative reconstruction. Contrast material: OMNI 350; Contrast volume: 100 ml; Contrast route: INTRAVENOUS (IV); REPORTING DATA: Count of CT and Cardiac NM exams in prior 12 months: This patient has received 2 known CTs and 0 known cardiac nuclear medicine studies in the 12 months prior to the current study. COMPARISON: CR XR hip RT 2-3V wo/w pel* [id number] 02/15/2021 10:43 AM RADIATION DOSE METRICS: Total DLP (mGy-cm): 740.06 FINDINGS: Lungs: Lung bases are clear. Liver: Normal. No mass. Gallbladder and bile ducts: Normal. No calcified stones. No ductal dilation. Pancreas: Normal. No ductal dilation. Spleen: Normal. No splenomegaly. Adrenal glands: Normal. No mass. Kidneys and ureters: Small nonobstructing right renal stone and small cortical cyst left kidney, otherwise kidneys are unremarkable. No hydronephrosis. Stomach and bowel: Unremarkable. No obstruction. No mucosal thickening. Appendix: No evidence of appendicitis. Intraperitoneal space: Unremarkable. No free air. No significant fluid collection. Vasculature: Unremarkable. No abdominal aortic aneurysm. Lymph nodes: Unremarkable. No enlarged lymph nodes. Urinary bladder: Unremarkable as visualized. Reproductive: Prostate gland is mildly enlarged. Bones/joints: Mild degenerative changes L4-L5 and L5-S1. No acute bony abnormalities. Soft tissues: Small fat containing left inguinal hernia. Right groin site is unremarkable. Small fat containing midline epigastric hernia situated a few cm above the umbilicus. CT/CT abdomen pelvis w con* [id number] IMPRESSION: 1. No acute findings within the abdomen or pelvis. 2. Small nonobstructing right renal stone.
[2022-10-21 14:00] VITALS: BP 135/74
[2022-10-21] MEDS: iohexol 350 mg/mL 500 mL Btl (per mL) IV (14:05)
[2022-10-21 14:30] VITALS: BP 120/76; PULSE 92; RESP 17; O2SAT 96
--- NOTE | 2022-10-22 05:00 | DCPLANNER ---
Addendum entered by Raven Wynn 12/08/22 10:12: Patient had a follow up appointment scheduled with general surgery - patient did attend appointment. Addendum entered by Raven Wynn 10/30/22 10:22: Patient has a follow up appointment scheduled for Monday, November 21, 2022 at 10:[address] Jackson at general surgery. Original Note: manager card had message to schedule a followup appointment for patient with general surgery. manager card sent patients information to the front office staff at general surgery. Patients information will be printed and reviewed. Clinic will call patient with appointment information.
== END 2022-10-21 15:09 | disposition home or self-care (01) ==
PROVIDERS: Emergency Provider Emergency Medicine; PCP Family Medicine
DX: R11.2 Nausea with vomiting, unspecified (principal)
CPT/HCPCS: 74177; 80053; 83690; 85025; 96361; 96374; 96375; 99285; J1200; J2765; J7030; Q9967

== ENCOUNTER → 2022-10-26 13:48 | Outpatient (BNVA) | payer BC, SELFPAY | PROVIDERS: PCP Family Medicine; Visit Provider Nurse Practitioner Family | DX: Z96.652 Presence of left artificial knee joint (principal) | CPT/HCPCS: 73560; 73565 ==

== ENCOUNTER 2022-11-02 06:00 | Outpatient (RCR) | payer BC, SELFPAY | END 2022-12-01 23:59 | disposition home or self-care (01) | LOC: MPT 06:00 | PROVIDERS: PCP Family Medicine; Visit Provider Student in an Organized Health Care Education/Training Program | DX: Z47.89 Encounter for other orthopedic aftercare (principal) | CPT/HCPCS: 97110; G0283 ==

== ENCOUNTER 2022-11-09 20:01 | Emergency (ER) | payer BC, SELFPAY ==
[2022-11-09 20:03] VITALS: BP 119/80; PULSE 95; RESP 18; TEMP 36.8; O2SAT 96; BMI 27.7
--- NOTE | 2022-11-09 20:12 | XRR_ITS ---
PROCEDURE INFORMATION: Exam: XR Abdomen Exam date and time: 11/09/2022 8:23 PM Age: 67 years old Clinical indication: Nausea and vomiting; Additional info: N/v TECHNIQUE: Imaging protocol: Radiologic exam of the abdomen. Views: Frontal supine view of the abdomen. 1 View. COMPARISON: CT abdomen pelvis w con* [id number] 10/21/2022 2:00 PM FINDINGS: Gastrointestinal tract: Normal. No bowel dilation. Bones/joints: Unremarkable. XR/XR abdomen 1V* [id number] IMPRESSION: No acute findings.
--- NOTE | 2022-11-09 20:12 | XRR_ITS ---
PROCEDURE INFORMATION: Exam: XR Chest Exam date and time: 11/09/2022 8:21 PM Age: 67 years old Clinical indication: Other: Hypotension TECHNIQUE: Imaging protocol: Radiologic exam of the chest. Views: 1 view. COMPARISON: CT abdomen pelvis w con* [id number] 10/21/2022 2:00 PM FINDINGS: Lungs: Unremarkable. No consolidation. Pleural spaces: Unremarkable. No pleural effusion. No pneumothorax. Heart/Mediastinum: Unremarkable. No cardiomegaly. Bones/joints: Unremarkable. XR/XR chest 1V portable [id number] IMPRESSION: No acute findings.
[2022-11-09 20:13] VITALS: BP 117/78; PULSE 90; RESP 18; O2SAT 94
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
--- NOTE | 2022-11-09 20:16 | ECG_ITS ---
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 Measurements Intervals [place] Rate: 93 P: 80 ND: 177 QRS: 66 QRSD: 94 T: 75 QT: 344 QTc: 428 Interpretive Statements SINUS RHYTHM No previous ECG available for comparison Electronically Signed On 11-10-2022 10:28:28 CDT by Jacinto Kapoor M.D. [id number]
[2022-11-09] MEDS: sodium chloride 0.9% 1,000 ML 999 ML IV (20:29)
[2022-11-09 20:43] VITALS: BP 142/94; PULSE 105; O2SAT 95
[2022-11-09 20:47] LABS: Basophils % 0.6 %; Eosinophils # 0.1 10^3/uL (0.0-0.8); Eosinophils % 1.5 %; Hematocrit 44.1 % (42.0-52.0); Hemoglobin 14.4 g/dL (11.7-16.6); Lymphocytes % 14.6 %; Mean Corpuscular HGB Conc 32.7 g/dL (30.0-36.0); Mean Corpuscular Hemoglobin 29.5 pg (28.0-34.0); Mean Corpuscular Volume 90.4 fl (80-94); Mean Platelet Volume 10.5 fL (7.4-10.4); Monocytes # 1.1 10^3/uL (0.2-0.9); Monocytes % 15.8 %; Neutrophils # 4.77 10^3/uL (1.8-7.7); Neutrophils % 67.2 %; Nucleated Red Blood Cells % 0 %; Platelet Count 213 10^3/cmm (130-400); Red Blood Count 4.88 10^6/uL (4.1-5.3); Red Cell Distribution Width 12.5 % (12.1-15.1); White Blood Count 7.1 10^3/uL (4.0-10.0)
[2022-11-09 21:10] LABS: Alanine Aminotransferase 22 U/L (0-41); Albumin Level 4.2 g/dL (3.5-5.2); Alkaline Phosphatase 91 U/L (40-130); Anion Gap 15.7 (5-19); Aspartate Amino Transferase 16 U/L (0-40); Blood Urea Nitrogen 21 mg/dL (8-23); Calcium 9.4 mg/dL (8.5-10.5); Carbon Dioxide 24 mmol/L (22-29); Chloride 100 mmol/L (98-107); Globulin 2.6 g/dL (1.3-4.6); Glomerular Filtration Rate 84.4 mL/min (90-130); Glucose 105 mg/dL (65-115); Lipase 71 U/L (13-60); Osmolality Calculated 285 mOsm/kg (285-295); Potassium 3.7 mmol/L (3.5-5.1); Sodium 136 mmol/L (136-145); Total Bilirubin 0.5 mg/dL (0.15-1.2); Total Protein 6.8 g/dL (6.6-8.7)
[2022-11-09 21:43] VITALS: BP 118/85; PULSE 87; RESP 16; O2SAT 94
[2022-11-09] MEDS: ondansetron 2 mg/ML SDV 2 mL 4 MG IVP (21:58)
[2022-11-09 22:00] VITALS: BP 122/76; PULSE 90; RESP 16; O2SAT 95
[2022-11-09 22:07] LABS: Add Urine Microscopic? NO; Charge for UA Resulting for Rev
[2022-11-09 22:24] LABS: Bilirubin Urine Neg (Negative); Blood Urine Neg (Negative); Glucose Urine UA Norm (Normal); Ketones Urine 1+ (Negative); Leukocyte Esterase Urine Negative (Negative); Nitrate Urine Negative (Negative); Protein Urine Neg (Negative); Specific Gravity, Urine 1.015 (1.005-1.030); Urine Appearance Clear (CLEAR); Urine Color Yellow (Yellow); Urobilinogen Urine Norm (Negative); pH Urine 6 (5-7)
[2022-11-09 22:58] VITALS: BP 134/87; PULSE 91; RESP 16; O2SAT 93
== END 2022-11-09 22:57 | disposition home or self-care (01) ==
PROVIDERS: Emergency Provider Emergency Medicine; PCP Family Medicine
DX: R11.2 Nausea with vomiting, unspecified (principal)
CPT/HCPCS: 36415; 71045; 74018; 80053; 81003; 83690; 85025; 93005; 96361; 96374; 99285; J2405; J7030

== ENCOUNTER → 2022-11-20 10:41 | Outpatient (BNVA) | payer BC, SELFPAY | PROVIDERS: PCP Family Medicine; Visit Provider Student in an Organized Health Care Education/Training Program | DX: Z96.652 Presence of left artificial knee joint (principal) | CPT/HCPCS: 73560; 73565 ==

== ENCOUNTER 2022-12-02 06:00 | Outpatient (RCR) | payer BC, SELFPAY | END 2023-01-01 23:59 | disposition home or self-care (01) | LOC: MPT 06:00 | PROVIDERS: PCP Family Medicine; Visit Provider Student in an Organized Health Care Education/Training Program | DX: Z47.1 Aftercare following joint replacement surgery (principal); Z96.698 Presence of other orthopedic joint implants | CPT/HCPCS: 97110; G0283 ==

== ENCOUNTER 2022-12-15 09:53 | Day surgery (SDC) | payer BC, SELFPAY ==
[2022-12-14 09:38] VITALS: BMI 27.8
[2022-12-15 10:05] VITALS: BP 150/88; PULSE 63; RESP 18; TEMP 36.6; O2SAT 97
[2022-12-15] MEDS: sodium chloride 0.9% 1,000 ML 30 ML IV (10:17)
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
--- NOTE | 2022-12-15 10:48 | W.PM.OPSUD ---
Surgery/Procedure H&P Update DATE OF PROCEDURE: December 15, 2022 DATE H&P PERFORMED: 11/21/22 H&P UPDATE INFORMATION: I have reviewed H&P completed within last 30 days, I have examined patient prior to procedure and No changes to prior documentation PREOP DIAGNOSIS: screening PLANNED PROCEDURE: Operation Date: 12/15/22 11:00 Proposed Procedures p [id number] egd [id number] colon K21.9, Z12.11 ,Z86.010(Not Applicable) - DO fabrizio Rodarte Colonoscopy(Not Applicable) - Chapin Jackson DO
[2022-12-15 11:07] VITALS: BP 123/81; PULSE 89; RESP 16; TEMP 36.2; O2SAT 93
--- NOTE | 2022-12-15 11:20 | ANE.PACU2 ---
Inpatient post-anesthesia follow up: Airway intact: Yes Vital signs: Temperature 97.2 F Pulse Rate 67 Respiratory Rate 18 Blood Pressure 128/87 Pulse Oximetry 98 Oxygen Delivery Me thod Nasal Cannula Oxygen Flow Rate 2 Fraction of Inspir ed Oxygen Hydration adequate: Yes Nausea and vomiting: No Pain level: 1 Mental status: Baseline
[2022-12-15 11:26] VITALS: BP 128/87; PULSE 67; RESP 18; O2SAT 98
== END 2022-12-15 11:40 | disposition home or self-care (01) ==
PROVIDERS: PCP Family Medicine; Visit Provider Surgery
PROC: 0DJ08ZZ Inspection of Upper Intestinal Tract, Via Natural or Artificial Opening Endoscopic (ICD-10-PCS; CPT 43235; principal; 2022-12-15 11:00)
PROC: 0DJD8ZZ Inspection of Lower Intestinal Tract, Via Natural or Artificial Opening Endoscopic (ICD-10-PCS; CPT 45378; 2022-12-15 11:00)
DX: K21.9 Gastro-esophageal reflux disease without esophagitis; K92.1 Melena; Z86.010 Personal history of colon polyps; R11.2 Nausea with vomiting, unspecified; J44.9 Chronic obstructive pulmonary disease, unspecified; I10 Essential (primary) hypertension; Z87.891 Personal history of nicotine dependence; K44.9 Diaphragmatic hernia without obstruction or gangrene; K57.30 Diverticulosis of large intestine without perforation or abscess without bleeding
CPT/HCPCS: 43239; 45378; 88305; J2704; J7030

== ENCOUNTER 2023-01-02 06:00 | Outpatient (RCR) | payer BC, SELFPAY | END 2023-01-31 23:59 | disposition home or self-care (01) | LOC: MPT 06:00 | PROVIDERS: PCP Family Medicine; Visit Provider Student in an Organized Health Care Education/Training Program | DX: Z47.89 Encounter for other orthopedic aftercare (principal) | CPT/HCPCS: 97110; G0283 ==

== ENCOUNTER → 2024-03-11 09:27 | Outpatient (BNVA) | payer OTHER, SELFPAY | PROVIDERS: PCP Family Medicine; Visit Provider Family Medicine | DX: I10 Essential (primary) hypertension (principal) | CPT/HCPCS: 80053; 80061 ==

== ENCOUNTER → 2024-08-08 14:00 | Outpatient (BNVA) | payer OTHER, SELFPAY | PROVIDERS: PCP Family Medicine; Visit Provider Nurse Practitioner | DX: R68.89 Other general symptoms and signs (principal); J10.1 Influenza due to other identified influenza virus with other respiratory manifestations | CPT/HCPCS: 87400 ==

== ENCOUNTER 2024-08-11 12:18 | Emergency (ER) | payer OTHER, SELFPAY ==
[2024-08-11] VITALS (50 sets, daily range): BP systolic 121–154; BP diastolic 73–101; PULSE 73–98; RESP 9–23; TEMP 36.4; O2SAT 89–95; BMI 30.7
--- NOTE | 2024-08-11 12:43 | ECG_ITS ---
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
--- NOTE | 2024-08-11 13:11 | XRR_ITS ---
PROCEDURE INFORMATION: Exam: XR Chest Exam date and time: 08/11/2024 1:27 PM Age: 69 years old Clinical indication: Cough and shortness of breath; Additional info: Cough/sob TECHNIQUE: Imaging protocol: Radiologic exam of the chest. Views: 1 view. COMPARISON: CR XR chest 1V portable [id number] 11/09/2022 8:21 PM FINDINGS: Lungs: Unremarkable. No consolidation. Pleural spaces: Unremarkable. No pleural effusion. No pneumothorax. Heart/Mediastinum: Unremarkable. No cardiomegaly. Bones/joints: Unremarkable. XR/XR chest 1V portable [id number] IMPRESSION: No acute findings.
[2024-08-11] MEDS: ipratropium-albuterol 3 mL Neb INHALATION (13:44)
[2024-08-11 13:53] LABS: Basophils % 0.2 %; Eosinophils % 0.1 %; Hematocrit 49.7 % (37-53); Lymphocytes # 1.1 10^3/uL (0.8-4.8); Lymphocytes % 8.7 %; Mean Corpuscular HGB Conc 33.6 g/dL (30-55); Mean Corpuscular Hemoglobin 30.6 pg (27-33); Mean Platelet Volume 10.2 fL (7.4-10.4); Monocytes # 1.2 10^3/uL (0.2-0.9); Monocytes % 9.6 %; Neutrophils # 9.72 10^3/uL (1.8-7.7); Nucleated Red Blood Cells % 0 %; Platelet Count 208 10^3/cmm (157-399); Red Blood Count 5.46 10^6/uL (3.85-5.65); Red Cell Distribution Width 12.6 % (12.1-15.1); White Blood Count 12.01 10^3/uL (3.29-11.43)
[2024-08-11] MEDS: methylPREDNISolone sod succ 125 mg/2 mL INJ IVP (13:53)
[2024-08-11 14:12] LABS: Alanine Aminotransferase 18 U/L (0-41); Albumin Level 4.3 g/dL (3.5-5.2); Alkaline Phosphatase 82 U/L (40-130); Anion Gap 19.9 (5-19); Aspartate Amino Transferase 13 U/L (0-40); Blood Urea Nitrogen 13 mg/dL (8-23); Calcium 9.2 mg/dL (8.5-10.5); Carbon Dioxide 18 mmol/L (22-29); Chloride 101 mmol/L (98-107); Globulin 2.8 g/dL (1.3-4.6); Glomerular Filtration Rate 112.1 mL/min (90-130); Glucose 108 mg/dL (65-115); Osmolality Calculated 281 mOsm/kg (285-295); Potassium 3.9 mmol/L (3.5-5.1); Sodium 135 mmol/L (136-145); Total Bilirubin 0.6 mg/dL (0.15-1.2); Total Protein 7.1 g/dL (6.6-8.7)
[2024-08-11 15:16] LABS: D Dimer 1.51 ug/mLFEU (0-0.59)
--- NOTE | 2024-08-11 15:22 | CTR_ITS ---
PROCEDURE INFORMATION: Exam: CTA Chest With Contrast Exam date and time: 08/11/2024 3:49 PM Age: 69 years old Clinical indication: Cough and shortness of breath; Shortness of breath, influenza, elevated d-dimer, cough; Additional info: SOB, influenza, elevated ddimer TECHNIQUE: Imaging protocol: Computed tomographic angiography of the chest with contrast. Exam focused on the arteries. 3D rendering (Not supervised by radiologist): MIP and/or 3D reconstructed images were created by the technologist. Radiation optimization: All CT scans at this facility use at least one of these dose optimization techniques: automated exposure control; mA and/or kV adjustment per patient size (includes targeted exams where dose is matched to clinical indication); or iterative reconstruction. Contrast material: OMNIPAQUE 350; Contrast volume: 60 ml; Contrast route: INTRAVENOUS (IV); COMPARISON: CR XR chest 1V portable [id number] 08/11/2024 1:27 PM RADIATION DOSE METRICS: Total DLP (mGy-cm): 398.42 FINDINGS: Pulmonary arteries: Normal. No pulmonary emboli. Aorta: Unremarkable. No aortic aneurysm. No aortic dissection. Lungs: Unremarkable. No consolidation. No masses. Pleural spaces: Unremarkable. No pneumothorax. No pleural effusion. Heart: Unremarkable. No cardiomegaly. No pericardial effusion. Lymph nodes: Unremarkable. No enlarged lymph nodes. Bones/joints: Unremarkable. No acute fracture. Soft tissues: Unremarkable. CT/[place] angio [place] [id number] IMPRESSION: No acute findings.
[2024-08-11] MEDS: iohexol 350 mg/mL 500 mL Btl (per mL) IV (16:01)
== END 2024-08-11 17:20 | disposition home or self-care (01) ==
PROVIDERS: Emergency Provider Physician Assistant; PCP Family Medicine
DX: J10.1 Influenza due to other identified influenza virus with other respiratory manifestations (principal); J44.9 Chronic obstructive pulmonary disease, unspecified; I10 Essential (primary) hypertension
CPT/HCPCS: 36415; 71045; 71275; 80053; 85025; 85378; 93005; 94640; 96374; 99285; J2919

== ENCOUNTER → 2024-11-28 13:27 | Outpatient (BNVA) | payer OTHER, SELFPAY | PROVIDERS: PCP Family Medicine; Visit Provider Nurse Practitioner | DX: R31.9 Hematuria, unspecified (principal) | CPT/HCPCS: 81000; 87086 ==

== ENCOUNTER → 2025-01-26 10:31 | Outpatient (BNVA) | payer OTHER, SELFPAY | PROVIDERS: PCP Family Medicine; Visit Provider Family Medicine | DX: I10 Essential (primary) hypertension (principal); J41.0 Simple chronic bronchitis; Z13.220 Encounter for screening for lipoid disorders; Z13.6 Encounter for screening for cardiovascular disorders | CPT/HCPCS: 80048; 80061 ==